=== PATIENT | male | born 1960 | race Caucasian/White ===

== ENCOUNTER 2020-07-13 18:40 | Inpatient (IN) | payer OTHER ==
[2020-07-13] MEDS ORDERED: SODIUM CHLORIDE 0.9% 500 ML 500 ML IV STA (19:20)
[2020-07-13] MEDS ORDERED: SODIUM CHLORIDE 0.9% 1,000 ML IV STA (19:20)
[2020-07-13] MEDS ORDERED: THIAMINE 100 MG/ML 2 ML VIAL IM STA (19:24)
[2020-07-13] MEDS ORDERED: LORazepam 2 MG/ML INJ IV PRN ×2 (19:24)
--- NOTE | 2020-07-13 19:24 | ED ---
General Adult HPI - General Chief complaint: Weakness Stated complaint: Sepsis,transfer from [facility] Time Seen by Provider: 07/13/20 18:40 Source: patient, RN/MD (Spoke with transferring physician), EMS, RN notes reviewed, old records reviewed (Review of reports from [facility]) Mode of arrival: EMS Limitations: no limitations - History of Present Illness Initial comments: Patient is a pleasant 74-year-old male presenting to the emergency Department as a transfer from [facility]. Patient was diagnosed with pneumonia. Patient did have blood cultures and lactic acid done. Patient received Rocephin and azithromycin. Patient did also receive magnesium and potassium. Patient is a daily drinker. Patient states he has been having cough and shortness of breath over the past week. Patient also has been fatigued. Patient complains of nausea and has vomited. - Related Data Allergies Allergy/AdvReac Type Severity Reaction Status Date / Time latex Allergy Rash/Hives Verified 07/13/20 18:48 Sulfa (Sulfonamide Allergy Unknown Verified 07/13/20 18:48 Antibiotics) Review of Systems ROS Statement: Those systems with pertinent positive or pertinent negative responses have been documented in the HPI. ROS Other: All systems not noted in ROS Statement are negative. Constitutional: Reports: fever Eyes: Denies: eye pain ENT: Denies: ear pain Respiratory: Reports: cough. Denies: dyspnea Cardiovascular: Denies: chest pain Endocrine: Reports: fatigue Gastrointestinal: Reports: nausea, vomiting. Denies: abdominal pain Genitourinary: Denies: dysuria Musculoskeletal: Denies: back pain Skin: Denies: rash Neurological: Denies: weakness Past Medical History Past Medical History: Cancer, COPD, GERD/Reflux, Hypertension History of Any Multi-Drug Resistant Organisms: None Reported Past Surgical History: Back Surgery, Orthopedic Surgery Additional Past Surgical History / Comment(s): THYROID, RIGHT HIP SX Past Psychological History: Anxiety Smoking Status: Current every day smoker Past Alcohol Use History: Daily, Heavy Past Drug Use History: None Reported General Exam Limitations: no limitations General appearance: alert, in no apparent distress Head exam: Present: normocephalic Eye exam: Present: normal appearance Neck exam: Present: normal inspection Respiratory exam: Present: rhonchi Cardiovascular Exam: Present: regular rate, normal rhythm, normal heart sounds Expanded Peripheral pulses: 2+: Radial (R), Radial (L) GI/Abdominal exam: Present: soft. Absent: tenderness Extremities exam: Present: normal inspection Neurological exam: Present: alert Psychiatric exam: Present: normal affect, normal mood Skin exam: Present: normal color, other (Refill less than 2 seconds bilateral fingers) Course Vital Signs 07/13/20 18:48 Temperature 98 F Pulse Rate 89 Respiratory 18 Rate Blood Pressure 88/69 O2 Sat by Pulse 100 Oximetry - Reevaluation(s) Reevaluation #1: 07/13/20 19:22 Patient reevaluated and updated. Patient did meet sepsis criteria prior to arrival. Patient did have blood culture and lactic acid and antibiotics given. Patient received at least 1 L of IV fluids per transfer record. Additional 1.5 L ordered. This will give over the 2.2 L required for ideal body weight of 73 kg. Critical Care Time Critical Care Time: Yes Total Critical Care Time: 31 Disposition Clinical Impression: Severe sepsis, Pneumonia Disposition: ADMITTED IP TO THIS HOSP Condition: Stable Is patient prescribed a controlled substance at d/c from ED?: No Referrals: Nando Deleon MD [Primary Care Provider] - 1-2 days Decision Time: 19:24
[2020-07-13] MEDS ORDERED: PIPERACILLIN-TAZOBACTAM 3.375 GM in SODIUM CHLORIDE 0.9% 100 ML IVPB STA (19:25)
[2020-07-13] MEDS ORDERED: PNEUMONIA PROTOCOL UTILIZED 1 EACH MISC PO PRN (19:25)
[2020-07-13] MEDS ORDERED: IPRATROPIUM-ALBUTEROL 3 ML NEB INHALATION PRN (19:25)
[2020-07-13 19:49] LABS: Albumin 3.2 g/dL (3.5-5.0); Magnesium 1.7 mg/dL (1.6-2.3); Potassium 3.1 mmol/L (3.5-5.1); Total Bilirubin 1.3 mg/dL (0.2-1.3); Total Protein 6.2 g/dL (6.3-8.2)
[2020-07-13] MEDS ORDERED: METOCLOPRAMIDE 5 MG/ML 2 ML VIAL IVP STA (19:49)
[2020-07-13] MEDS ORDERED: POTASSIUM CHLORIDE 20 MEQ in WATER FOR INJECTION 1 100ML.BAG IVPB STA (19:53)
--- NOTE | 2020-07-13 19:59 | ED ---
Medical Decision Making - Lab Data Result diagrams: 07/13/20 19:29 Lab Results 07/13/20 07/13/20 Range/Units 19:29 19:29 Sodium 138 (137-145) mmol/L Potassium 3.1 L (3.5-5.1) mmol/L Chloride 101 (98-107) mmol/L Carbon Dioxide 24 (22-30) mmol/L Anion Gap 13 mmol/L BUN 4 L (9-20) mg/dL Creatinine 1.09 (0.66-1.25) mg/dL Est GFR (CKD-EPI)AfAm 86 (>60 ml/min/1.73 sqM) Est GFR (CKD-EPI)NonAf 74 (>60 ml/min/1.73 sqM) Glucose 74 (74-99) mg/dL Plasma Lactic Acid Sanjeev 4.8 H* (0.7-2.0) mmol/L Calcium 7.0 L (8.4-10.2) mg/dL Magnesium 1.7 (1.6-2.3) mg/dL Total Bilirubin 1.3 (0.2-1.3) mg/dL AST 122 H (17-59) U/L ALT 29 (4-49) U/L Alkaline Phosphatase 148 H (38-126) U/L Total Protein 6.2 L (6.3-8.2) g/dL Albumin 3.2 L (3.5-5.0) g/dL Disposition Clinical Impression: Pneumonia, Septic shock Disposition: ADMITTED IP TO THIS [facility] Condition: Serious Is patient prescribed a controlled substance at d/c from ED?: No Referrals: Nando Deleon MD [Primary Care Provider] - 1-2 days Decision Time: 19:59 Procedures - Sepsis Sepsis Focused Exam #1 Time Sepsis Criteria Met: 18:40 Sepsis Focused Exam Date: 07/13/20 Sepsis Focused Exam Time: 19:58 Sepsis Focused Exam Complete: Yes Vital Signs & RN Notes Reviewed: Yes Capillary Refill: < 2 Seconds: Fingers, Toes Peripheral Pulses: Normal: Radial (R), Radial (L) Skin Color: Normal for Patient Respiratory Exam: normal lung sounds Cardiovascular Exam: regular rate, normal rhythm
[2020-07-13] MEDS: SODIUM CHLORIDE 0.9% 1,000 ML IV SCH (20:00)
[2020-07-13] MEDS: LORazepam 2 MG/ML INJ IV PRN (20:10)
[2020-07-13 20:49] LABS: Glucose,Whole Blood 82 mg/dL (75-99)
[2020-07-14] MEDS: SODIUM CHLORIDE 0.9% 1,000 ML IV SCH ×2 (02:00→10:44)
[2020-07-14] MEDS: PIPERACILLIN-TAZOBACTAM 3.375 GM in SODIUM CHLORIDE 0.9% 100 ML IVPB SCH ×3 (04:52→21:19)
[2020-07-14 05:53] LABS: Anisocytosis Slight; HCT 37.5 % (39.0-53.0); HGB 12.4 gm/dL (13.0-17.5); MCHC 33.2 g/dL (31.0-37.0); MCV 102.3 fL (80.0-100.0); Macrocytosis Moderate; Mean Platelet Volume 7.8; RBC 3.66 m/uL (4.30-5.90)
[2020-07-14 06:08] LABS: African American GFR (CKD) >90 (>60 ml/min/1.73 sqM); Anion Gap 10 mmol/L; Blood Urea Nitrogen 3 mg/dL (9-20); Calcium 6.7 mg/dL (8.4-10.2); Carbon Dioxide 23 mmol/L (22-30); Chloride 104 mmol/L (98-107); Glucose 66 mg/dL (74-99); Non-African American GFR(CKD) 81 (>60 ml/min/1.73 sqM); Potassium 2.9 mmol/L (3.5-5.1); Sodium 137 mmol/L (137-145)
[2020-07-14 06:27] LABS: Basophils # (M) 0.05 k/uL (0-0.2); Lymphocytes # (M) 1.05 k/uL (1.0-4.8); Monocytes # (M) 0.25 k/uL (0-1.0); Myelocytes # (M) 0.05 k/uL (0); Myelocytes % 1 %; Neutrophils # (M) 3.55 k/uL (1.3-7.7); Neutrophils % (M) 71 %; Nucleated Red Blood Cells 0 /100 WBC (0-0); Total Cells Counted 200
[2020-07-14 06:28] LABS: Platelet Count 50 k/uL (150-450)
--- NOTE | 2020-07-14 06:35 | XR ---
EXAMINATION TYPE: XR chest 1V DATE OF EXAM: 07/14/2020 CLINICAL HISTORY: Difficulty breathing progress study. TECHNIQUE: Single AP portable upright view of the chest is obtained. COMPARISON: Outside Chest x-ray from one day earlier FINDINGS: Bilateral mild chronic parenchymal change without suspicious focal airspace opacity, pleur al effusion, or pneumothorax seen bilaterally on current study. Cardiac silhouette size stable and wi thin normal limits. Multilevel spurring mid to lower thoracic spine is present. Overlying EKG leads r edemonstrated. IMPRESSION: Chronic changes without acute pulmonary process identified
[2020-07-14] MEDS ORDERED: Potassium Replacement Protocol 1 EACH MISC MISCELLANE PRN (06:41)
[2020-07-14] MEDS ORDERED: IOPAMIDOL CONTRAST (ORAL USE) VIAL PO PRN (08:13)
--- NOTE | 2020-07-14 08:24 | P.CNPUL ---
History of Present Illness Consult date: 07/14/20 History of present illness: This is a 79-year-old male patient was transferred to us from [facility] because of concern of infection and sepsis. The patient presented there were originally yesterday complaining of not feeling well for the past month. He was complaining of weakness and having generalized weakness. He denies having any chest back or neck pain. Apparently he was weak and he was unable to eat anything. His last oral intake was approximately a week ago. He did have however alcohol and there was drinking bourbon whiskey on a daily basis. He was afebrile in the emergency department with temperature of 98 6. His pulse was 68. BP was 100/66. Saturation was 99-100% on 3 L of oxygen by nasal cannula. He was given a chest x-ray that was interpreted as a limited left lower lobe pneumonia and the patient was given a combination of Zosyn and Zithromax. Urinalysis was negative for infection. His initial lactic acid level was at 5.6. His magnesium was low at 1.4, his potassium was low at 2.7 and the patient's creatinine was at 1.3 and the liver function tests were consistent with AST of 134 ALT of 33 alk phos of 188, bilirubin of 1.5 and a total protein of 7.5. The patient was brought into our hospital the patient was given a total of 1.5 L and the patient got another 1 L of normal saline at [facility]. His lactic acid level is gradually improving is currently down to 3.4. He is awake and alert. He is following commands. His white cell count remains low at 5.0. He has chronic thrombocytopenia probably related to alcohol drinking. 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 He has an antibiotic spacer and he was given also a PICC line for long-term antibiotic use. History as reported by him at somewhat limited and were not sure of the details of this. Surgeries that he had at a hospital in [facility] . According to him, he was taken a penicillin-based antibiotics and he completed antibiotic treatment back in May 2020. His right hip surgical wound site is dry clean and intact at this point in time. He is able to bear some weight, yet he has still difficulty with mobility and gait. 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 He used to work in [employer], [employer] and he had issues initially with rotator cuff and he was unable to continue his practice as a general surgeon. 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 I believe his license and his assets have been all frozen and taken away from him and the patient is currently living alone and the [facility]. His story needs to be confirmed independently Review of Systems Constitutional: Reports fatigue, Reports weakness, Reports weight loss Eyes: denies as per HPI, denies blurred vision, denies bulging eye, denies decreased vision, denies diplopia, denies discharge, denies dry eye, denies irritation, denies itching, denies pain, denies photophobia, denies loss of peripheral vision, denies loss of vision, denies tunnel vision/blind spots Ears: deny: decreased hearing, ear discharge, earache, tinnitus Ears, nose, mouth and throat: Reports as per HPI Breasts: absent: as per HPI, gynecomastia Cardiovascular: Reports decreased exercise tolerance, Reports dyspnea on exertion Respiratory: Reports dyspnea Gastrointestinal: Reports as per HPI Genitourinary: Reports as per HPI, Reports urinary frequency, Reports urinary hesitancy, Reports urinary retention Musculoskeletal: Reports gait dysfunction, Reports limitation of motion, Reports muscle weakness Musculoskeletal: absent: ankle pain, ankle stiffness, ankle swelling Integumentary: Reports as per HPI Neurological: Reports as per HPI Psychiatric: Reports as per HPI Endocrine: Reports as per HPI Hematologic/Lymphatic: Reports as per HPI Allergic/Immunologic: Reports as per HPI Past Medical History Past Medical History: Cancer, COPD, GERD/Reflux, Hypertension Additional Past Medical History / Comment(s): 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, thyroid CA (2009) post thyroidectomy, COPD, genralised anxiety, BPH, HTN, hyperlipidemia, alcoholism ( drinks bourbon daily), 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 and the hardware was removed and the patient was given a temparory joint with PICC line for antibiotics, smoker History of Any Multi-Drug Resistant Organisms: None Reported Past Surgical History: Back Surgery, Orthopedic Surgery Additional Past Surgical History / Comment(s): Thyroidectomy , right orchiectomy, RIGHT HIP replacement in february 2019 Past Psychological History: Anxiety Smoking Status: Current every day smoker Past Alcohol Use History: Daily, Heavy Past Drug Use History: None Reported - Past Family History Mother Family Medical History: Myocardial Infarction (CT) Additional Family Medical History / Comment(s): depression Medications and Allergies Home Medications Medication Instructions Recorded Confirmed Type Levothyroxine Sodium 125 mcg PO DAILY 07/13/20 07/13/20 History Pantoprazole Sodium [Protonix] 20 mg PO DAILY 07/13/20 07/13/20 History Sertraline HCl [Zoloft] 100 mg PO DAILY 07/13/20 07/13/20 History Acetaminophen Tab [Tylenol] 650 mg PO TID PRN 07/14/20 07/14/20 History Ibuprofen 800 mg PO Q8H PRN 07/14/20 07/14/20 History Propranolol LA [Inderal LA] 80 mg PO DAILY 07/14/20 07/14/20 History Sertraline HCl [Zoloft] 100 mg PO DAILY 07/14/20 07/14/20 History Tamsulosin [Flomax] 0.5 mg PO DAILY 07/14/20 07/14/20 History Allergies Allergy/AdvReac Type Severity Reaction Status Date / Time latex Allergy Rash/Hives Verified 07/13/20 18:48 Sulfa (Sulfonamide Allergy Unknown Verified 07/13/20 18:48 Antibiotics) Physical Exam Vitals: Vital Signs Temp Pulse Resp BP BP Pulse Ox 07/14/20 04:00 99.3 F 70 4 L 113/77 94 L 07/14/20 02:00 109 H 17 131/80 95 07/14/20 00:00 99.1 F 69 9 L 126/86 99 07/13/20 22:05 71 8 L 123/60 98 07/13/20 22:00 67 11 L 116/77 98 07/13/20 21:00 99.0 F 67 18 141/101 100 07/13/20 20:21 99.0 F 66 11 L 114/90 123/60 99 07/13/20 20:00 86 121/81 07/13/20 19:25 61 18 121/81 100 07/13/20 18:48 98 F 89 18 88/69 100 Intake and Output 07/13/20 07/14/20 07/14/20 22:59 06:59 14:59 Intake Total 260 1170 130 Output Total 325 1150 125 Balance -65 20 5 Intake: IV 260 1170 130 Sodium Chloride 0.9% 1, 260 1170 130 000 ml @ 130 mls/hr IV . [id number] [facility] Rx#:[id number] Output: Urine 325 1150 125 Other: Voiding Method Indwelling Catheter # Bowel Movements 1 1 Weight 90.718 kg 92.3 kg The patient appeared well nourished and normally developed. Vital signs as documented. Head exam is unremarkable. No scleral icterus or corneal arcus noted. Neck is without jugular venous distension, thyromegaly, or carotid bruits. Carotid upstrokes are brisk bilaterally. Lungs are clear to auscultation and percussion. Cardiac exam reveals the PMI to be normally sized and situated. Rhythm is regular. First and second heart sounds normal. No murmurs, rubs or gallops. Abdominal exam reveals normal bowel sounds, no masses, no organomegaly and no aortic enlargement. Extremities are nonedematous and both femoral and pedal pulses are normal. The patient has a limited range of motion in his right hip. Nevertheless, there is no swelling in the surgical wound site over the right hip area as dry clean and intact and there is no drainage or erythema or pain during passive movement. Examination of the skin revealed no evidence of significant rashes, suspicious appearing nevi or other concerning lesions .Neurologically, the patient is awake and alert and the patient does not have any focal neurological deficit. Cranial nerves are essentially intact. Results - Laboratory Findings CBC and BMP: 07/14/20 05:43 07/14/20 05:43 Abnormal lab findings: Abnormal Labs 07/13/20 07/13/20 07/13/20 19:29 19:29 22:26 RBC Hgb Hct MCV RDW Plt Count Myelocytes # (Manual) Potassium 3.1 L BUN 4 L Glucose Plasma Lactic Acid Sanjeev 4.8 H* 4.7 H* Calcium 7.0 L AST 122 H Alkaline Phosphatase 148 H Total Protein 6.2 L Albumin 3.2 L 07/14/20 07/14/20 07/14/20 02:42 05:35 05:43 RBC 3.66 L Hgb 12.4 L Hct 37.5 L MCV 102.3 H RDW 19.0 H Plt Count 50 L Myelocytes # (Manual) 0.05 H Potassium BUN Glucose Plasma Lactic Acid Sanjeev 4.3 H* 3.4 H* Calcium AST Alkaline Phosphatase Total Protein Albumin 07/14/20 05:43 RBC Hgb Hct MCV RDW Plt Count Myelocytes # (Manual) Potassium 2.9 L BUN 3 L Glucose 66 L Plasma Lactic Acid Sanjeev Calcium 6.7 L AST Alkaline Phosphatase Total Protein Albumin - Diagnostic Findings Chest x-ray: image reviewed Assessment and Plan Plan: 1 generalized weakness along with lactic acidosis, admitted to the hospital for possible sepsis. No clear source of infection. This could be all related to diminished oral intake and ongoing alcohol drinking. Rule out any abdominal pathology contributing to his poor oral intake. The patient seems to be drinking heavily 2 acute lactic acidosis, improving 3 history of a infected right hip prosthesis post right hip arthroplasty that was performed for an AVN of the right hip. The patient had the hardware removed and the patient was given antibiotic spacer and long-term antibiotics with a PICC line if he completed a few months back 4 significant mobility and gait secondary to above 5 history of testicular cancer with previous leg orchiectomy 6 history of thyroid cancer post-thyroidectomy currently on thyroid hormone replacement 7 hypertension 8 hyperlipidemia 9 BPH 10 impaired performance and functional status secondary to above-mentioned comorbidities. Plan Continue IV fluids at the rate of 130s is an hour of normal saline monitor the lactic acid level I clearly do not see any signs of pneumonia. I reviewed the chest x-ray from this hospital and that is no evidence of any pneumonia clinically the patient does not have any respiratory difficulties or respiratory complaints. I would suggest stopping the Zithromax for now. Continue empiric antibiotic coverage with IV Zosyn Check pro calcitonin level Check amylase lipase Check a CAT scan of the abdomen with oral contrast No hemodynamic instability. X-ray of the right hip Orthopedic consultation regarding the previous history of right hip prosthetic infection Resume all medications Can be transferred out of the intensive care unit
[2020-07-14 08:38] LABS: Amylase <30 U/L (30-110)
--- NOTE | 2020-07-14 09:16 | XR ---
EXAMINATION TYPE: XR Hip Limited RT DATE OF EXAM: 07/14/2020 CLINICAL HISTORY: Right hip pain and infection. TECHNIQUE: Single AP portable view of right hip is obtained . COMPARISON: None. FINDINGS: Metallic hardware from total right hip arthroplasty is seen and appears satisfactory in ali gnment and position. Femoral head component shows circular density presumed antibiotic spacer. Some symmetric surrounding lucency surrounding the femoral head component with adjacent sclerosis and mode rate spurring is noted. Some adjacent heterotopic ossification is present. No suspicious lucency or b shayla destruction. IMPRESSION: As above
[2020-07-14 09:32] LABS: Glucose,Whole Blood 110 mg/dL (75-99)
[2020-07-14] MEDS: POTASSIUM CHLORIDE ER 20 MEQ TAB.ER PO SCH ×5 (09:33→23:50)
[2020-07-14] MEDS: MULTIVITAMINS, THERA 1 EACH TAB PO SCH (09:34)
[2020-07-14] MEDS: NICOTINE 14MG/24HR PATCH TRANSDERM SCH (09:34)
[2020-07-14] MEDS: THIAMINE 100 MG TAB PO SCH ×2 (09:34→18:17)
[2020-07-14] MEDS: TAMSULOSIN 0.4 MG CAP.ER.24H PO SCH (09:34)
[2020-07-14] MEDS: PROPRANOLOL LA 80 MG CAP.SA.24H PO SCH (09:36)
[2020-07-14] MEDS: SERTRALINE 100 MG TAB PO SCH (09:36)
[2020-07-14] MEDS: LEVOTHYROXINE 125 MCG TAB PO SCH (09:36)
[2020-07-14] MEDS: PANTOPRAZOLE 40 MG TABLET PO SCH (09:38)
[2020-07-14] MEDS: LORazepam 2 MG/ML INJ IV PRN ×2 (10:01→12:48)
[2020-07-14 10:13] LABS: T4, Free (Free Thyroxine) <0.07 ng/dL (0.78-2.19)
--- NOTE | 2020-07-14 12:02 | CT ---
EXAMINATION TYPE: CT abdomen pelvis wo con DATE OF EXAM: 07/14/2020 HISTORY: Sepsis, lactic acidosis, increasing weakness CT DLP: 833.6 mGycm. Automated Exposure Control for Dose Reduction was Utilized. TECHNIQUE: CT scan of the abdomen and pelvis is performed with oral but without IV contrast. COMPARISON: NONE FINDINGS: Within the limitations of a non-contrast study, the following observations are made. LUNG BASES: Trace bilateral pleural effusions. Patchy areas of atelectasis and/or limited consolidati on in the posterior lung bases right greater than left. Correlate clinically. LIVER/GB: Liver markedly heterogeneously hypodense consistent with diffuse fatty infiltration. Liver size upper limits of normal. PANCREAS: No significant abnormality is seen. SPLEEN: No significant abnormality is seen. ADRENALS: No significant abnormality is seen. KIDNEYS: No renal stones or hydronephrosis seen bilaterally. BOWEL: Oral contrast reaches level of the hepatic flexure making evaluation of distal bowel suboptima l. No suspicious small or large bowel dilatation. Mildly prominent contrast filled stomach. Few scatt ered air-fluid levels. Focal with mild to moderate wall thickening near level of hepatic flexure is s uspected versus fluid-filled colonic prominence. Mild wall thickening near splenic flexure. Occasiona l diverticula distal left colon with more prominent diverticulosis in the sigmoid colon. Mild wall th ickening at this level. GENITAL ORGANS: [place] within normal limits in size. Adjacent scattered pelvic phleboliths. LYMPH NODES: No greater than 1cm abdominal or pelvic lymph nodes are appreciated. OSSEOUS STRUCTURES: Metallic hardware from total right hip arthroplasty causes streak artifact limiti ng evaluation of pelvic structures. Moderate multilevel spurring in the thoracolumbar spine. Moderate disc space narrowing and vacuum disc phenomenon with slight lateral spurring L4-L5 level. Mild heigh t loss with endplate sclerosis superior L1 level OTHER: Small fat-containing left inguinal hernia axial image 80. Moderate calcified plaque abdominal aorta extends into branch vessels. IMPRESSION: Cannot mild multifocal areas of uncomplicated acute colitis. Correlate clinically. Marked fatty infiltration of liver noted. Right greater than left patchy bibasilar atelectasis and/or Limit ed acute consolidation.
[2020-07-14] MEDS ORDERED: SODIUM CHLORIDE 0.9% 1,000 ML IV ONE (12:47)
[2020-07-14] MEDS ORDERED: ONDANSETRON 4 MG/2 ML VIAL IVP PRN (13:17)
--- NOTE | 2020-07-14 15:07 | P.HPIM ---
History of Present Illness H&P Date: 07/14/20 Chief Complaint: Cough shortness History of presenting complaint: This is a 59-year-old patient of . Patient drinks at least a couple Pope drinks every day. Smoker. Has not been taking his medications for last 3 weeks peeling weak and tired. Has got short of breath. Cough. Some sputum production. Presented to [facility] provided he was transferred down here. With the diagnosis of pneumonia. Started on IV Zosyn and Zithromax. Patient been having loose stools somewhat watery for last couple of days. No abdominal pain. Somewhat shaky and jittery. Decreased appetite. Patient doesn't eat healthy at home. Patient also had high lactic acid. Has chronically depleted platelets from chronic alcohol intake. 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 Tired rundown. Not sure about fever and chills. Review of systems: GEN.: Tired rundown EYES: None HEENT: None NECK: None RESPIRATORY: Cough shortness of breath CARDIOVASCULAR: None GASTROINTESTINAL: Watery stools GENITOURINARY: None MUSCULOSKELETAL: Joint pain LYMPHATICS: None HEMATOLOGICAL: None PSYCHIATRY: Anxious NEUROLOGICAL: None Past medical history to include: COPD, GERD, hypertension, excellent cancer 1979 with right orchiectomy and radiation, thyroid cancer 2009 with thyroidectomy, COPD, anxiety, BPH, hypertension, hyperlipidemia, alcoholism, avascular necrosis of the right hip with infection prosthetic and removed, Social history: Patient is a smoker and drinks at least coupleBoubon drinks daily. Physical examination: VITAL SIGNS: 98, 89, 18, 121/81, 100% on 2 L GENERAL: BMI 30, laying in bed disheveled, tired. EYES: Pupils equal. Conjunctiva normal. HEENT: External appearance of nose and ears normal, oral cavity grossly normal. NECK: JVD not raised; masses not palpable. HEART: First and second heart sounds are normal; no edema. LUNGS: Respiratory rate increased, decreased breath sound growing expiration some wheezing. ABDOMEN: Soft, nontender, liver spleen not palpable, no masses palpable. PSYCH: Alert and oriented x3; anxiousl. NEUROLOGICAL: Cranial nerves grossly intact; no facial asymmetry, power and sensation grossly intact. Tremors LYMPHATICS: No lymph nodes palpable in the axilla and neck INVESTIGATIONS, reviewed in the clinical context: Potassium 3.1 creatinine 1.09 bun is 4 lactic acid 4.8 AST 122 ALT 29 albumin 3.2 Chest x-ray film personally reviewed by me-possible infiltrate Assessment: -Pneumonia suspected gram-negative orgasm in an immunosuppressed patient from chronic alcoholism -Acute COPD exacerbation in a current smoker -Chronic nicotine dependence patient cigarette smoker -Alcohol use disorder -Early alcohol withdrawal syndrome -GERD -Essential hypertension -Hyperlipidemia -BPH -Anxiety not otherwise determined -Lactic acidosis both type I and type II including that from dehydration -Macrocytic anemia and alcoholic combination of possible B12 deficiency and alcohol liver disease -Hypokalemia from diarrhea -Hypoglycemia from decreased oral intake -Acute diarrhea suspect viral and/or infectious Plan: Patient is on IV Zosyn, bronchodilators,Inhaled steroids. Home medications resumed. Patient is on the CIWA scale will also had scheduled Valium for the alcohol withdrawal syndrome. Fall precautions. Pulmonary consulted. We'll also add Timentin. Check patient's B12 folate level. Stool be sent off for Giardia. It may be noted that patient has not been taking his medications for a few days. That'll explain patient's elevated TSH and a low free T4. Past Medical History Past Medical History: Cancer, COPD, GERD/Reflux, Hypertension Additional Past Medical History / Comment(s): 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, thyroid CA (2009) post thyroidectomy, COPD, genralised anxiety, BPH, HTN, hyperlipidemia, alcoholism ( drinks bourbon daily), 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 and the hardware was removed and the patient was given a temparory joint with PICC line for antibiotics, smoker History of Any Multi-Drug Resistant Organisms: None Reported Past Surgical History: Back Surgery, Orthopedic Surgery Additional Past Surgical History / Comment(s): Thyroidectomy , right orchiectomy, RIGHT HIP replacement in february 2019 Past Psychological History: Anxiety Smoking Status: Current every day smoker Past Alcohol Use History: Daily, Heavy Past Drug Use History: None Reported - Past Family History Mother Family Medical History: Myocardial Infarction ([place]) Additional Family Medical History / Comment(s): depression Medications and Allergies Home Medications Medication Instructions Recorded Confirmed Type Levothyroxine Sodium 125 mcg PO DAILY 07/13/20 07/13/20 History Pantoprazole Sodium [Protonix] 20 mg PO DAILY 07/13/20 07/13/20 History Sertraline HCl [Zoloft] 100 mg PO DAILY 07/13/20 07/13/20 History Acetaminophen Tab [Tylenol] 650 mg PO TID PRN 07/14/20 07/14/20 History Ibuprofen 800 mg PO Q8H PRN 07/14/20 07/14/20 History Propranolol LA [Inderal LA] 80 mg PO DAILY 07/14/20 07/14/20 History Sertraline HCl [Zoloft] 100 mg PO DAILY 07/14/20 07/14/20 History Tamsulosin [Flomax] 0.5 mg PO DAILY 07/14/20 07/14/20 History Allergies Allergy/AdvReac Type Severity Reaction Status Date / Time latex Allergy Rash/Hives Verified 07/13/20 18:48 Sulfa (Sulfonamide Allergy Unknown Verified 07/13/20 18:48 Antibiotics) Physical Exam Vitals: Vital Signs Temp Pulse Resp BP BP Pulse Ox 07/14/20 04:00 99.3 F 70 4 L 113/77 94 L 07/14/20 02:00 109 H 17 131/80 95 07/14/20 00:00 99.1 F 69 9 L 126/86 99 07/13/20 22:05 71 8 L 123/60 98 07/13/20 22:00 67 11 L 116/77 98 07/13/20 21:00 99.0 F 67 18 141/101 100 07/13/20 20:21 99.0 F 66 11 L 114/90 123/60 99 07/13/20 20:00 86 121/81 07/13/20 19:25 61 18 121/81 100 07/13/20 18:48 98 F 89 18 88/69 100 Intake and Output 07/13/20 07/14/20 07/14/20 22:59 06:59 14:59 Intake Total 260 1170 130 Output Total 325 1150 125 Balance -65 20 5 Intake: IV 260 1170 130 Sodium Chloride 0.9% 1, 260 1170 130 000 ml @ 130 mls/hr IV . [id number] [facility] Rx#:[id number] Output: Urine 325 1150 125 Other: Voiding Method Indwelling Catheter # Bowel Movements 1 1 Weight 90.718 kg 92.3 kg Results CBC & Chem 7: 07/14/20 05:43 07/14/20 05:43 Labs: Abnormal Lab Results - Last 24 Hours (Table) 07/13/20 07/13/20 07/13/20 Range/Units 19:29 19:29 22:26 RBC (4.30-5.90) m/uL Hgb (13.0-17.5) gm/dL Hct (39.0-53.0) % MCV (80.0-100.0) fL RDW (11.5-15.5) % Plt Count (150-450) k/uL Myelocytes # (Manual) (0) k/uL Potassium 3.1 L (3.5-5.1) mmol/L BUN 4 L (9-20) mg/dL Glucose (74-99) mg/dL POC Glucose (mg/dL) (75-99) mg/dL Plasma Lactic Acid Sanjeev 4.8 H* 4.7 H* (0.7-2.0) mmol/L Calcium 7.0 L (8.4-10.2) mg/dL AST 122 H (17-59) U/L Alkaline Phosphatase 148 H (38-126) U/L Total Protein 6.2 L (6.3-8.2) g/dL Albumin 3.2 L (3.5-5.0) g/dL Amylase (30-110) U/L TSH (0.465-4.680) mIU/L 07/14/20 07/14/20 07/14/20 Range/Units 02:42 05:35 05:43 RBC 3.66 L (4.30-5.90) m/uL Hgb 12.4 L (13.0-17.5) gm/dL Hct 37.5 L (39.0-53.0) % MCV 102.3 H (80.0-100.0) fL RDW 19.0 H (11.5-15.5) % Plt Count 50 L (150-450) k/uL Myelocytes # (Manual) 0.05 H (0) k/uL Potassium (3.5-5.1) mmol/L BUN (9-20) mg/dL Glucose (74-99) mg/dL POC Glucose (mg/dL) (75-99) mg/dL Plasma Lactic Acid Sanjeev 4.3 H* 3.4 H* (0.7-2.0) mmol/L Calcium (8.4-10.2) mg/dL AST (17-59) U/L Alkaline Phosphatase (38-126) U/L Total Protein (6.3-8.2) g/dL Albumin (3.5-5.0) g/dL Amylase (30-110) U/L TSH (0.465-4.680) mIU/L 07/14/20 07/14/20 07/14/20 Range/Units 05:43 05:43 08:35 RBC (4.30-5.90) m/uL Hgb (13.0-17.5) gm/dL Hct (39.0-53.0) % MCV (80.0-100.0) fL RDW (11.5-15.5) % Plt Count (150-450) k/uL Myelocytes # (Manual) (0) k/uL Potassium 2.9 L (3.5-5.1) mmol/L BUN 3 L (9-20) mg/dL Glucose 66 L (74-99) mg/dL POC Glucose (mg/dL) (75-99) mg/dL Plasma Lactic Acid Sanjeev 5.5 H* (0.7-2.0) mmol/L Calcium 6.7 L (8.4-10.2) mg/dL AST (17-59) U/L Alkaline Phosphatase (38-126) U/L Total Protein (6.3-8.2) g/dL Albumin (3.5-5.0) g/dL Amylase <30 L (30-110) U/L TSH 99.500 H (0.465-4.680) mIU/L 07/14/20 Range/Units 09:30 RBC (4.30-5.90) m/uL Hgb (13.0-17.5) gm/dL Hct (39.0-53.0) % MCV (80.0-100.0) fL RDW (11.5-15.5) % Plt Count (150-450) k/uL Myelocytes # (Manual) (0) k/uL Potassium (3.5-5.1) mmol/L BUN (9-20) mg/dL Glucose (74-99) mg/dL POC Glucose (mg/dL) 110 H (75-99) mg/dL Plasma Lactic Acid Sanjeev (0.7-2.0) mmol/L Calcium (8.4-10.2) mg/dL AST (17-59) U/L Alkaline Phosphatase (38-126) U/L Total Protein (6.3-8.2) g/dL Albumin (3.5-5.0) g/dL Amylase (30-110) U/L TSH (0.465-4.680) mIU/L Thrombosis Risk Factor Assmnt - Choose All That Apply Each Factor Represents 1 point: Abnormal pulmonary function (COPD), Age 41-60 years, Sepsis (< 1month), Serious lung disease incl. pneumonia (< 1month) Thrombosis Risk Factor Assessment Total Risk Factor Score: 4 Thrombosis Risk Factor Assessment Level: Moderate Risk
[2020-07-14] MEDS: diazePAM 5 MG TAB PO SCH ×2 (15:25→21:20)
[2020-07-14] MEDS: DEXTROSE 5%-0.9% NACL 1,000 ML IV SCH ×2 (15:26→23:50)
--- NOTE | 2020-07-14 17:25 | P.CNOR ---
History of Present Illness - HPI Consult date: 07/14/20 Consult reason: joint pain (Right hip pain s/p antibiotic spacer after total hip infection) History of present illness: This is a 59-year-old male patient was transferred to [facility] from [facility] due to concern of infection and sepsis. The patient was seen at the bedside this afternoon while in ICU and he was just given Valium. He is easy to arouse but falls asleep quickly during exam. I'm unable to obtain a full surgical history at this time. He has a history of a right total hip arth roplasty last year in [facility]. The patient was found to have total hip infection and an antibiotic spacer was placed. A PICC line was inserted and he underwent IV antibiotic therapy until April or May 2020. Again, the patient is unable to give me a complete history at this time due to his lethargy from recent medications. He does states pain in the right hip currently, a little more than normal for him. He is currently laying comfortably in bed with his right leg crossed over his left. The patient is able to bear weight on the leg according to the patient. He denies recent fever, chills, or rigors. The patient has had numerous loose stools today and C. diff was negative. His white count is normal. Sed rate and CRP have not been obtained. Lactic acid levels are trending up again. Orthopedics was consulted to rule out a septic hip joint for a possible source of infection on this gentleman. According to Dr. Cash, this history was obtained earlier in the day when the patient was less lethargic/sleeping: The patient presented there were originally yesterday complaining of not feeling well for the past month. He was complaining of weakness and having generalized weakness. He denies having any chest back or neck pain. Apparently he was weak and he was unable to eat anything. His last oral intake was approximately a week ago. He did have however alcohol and there was drinking bourbon whiskey on a daily basis. He was afebrile in the emergency department with temperature of 98 6. His pulse was 68. BP was 100/66. Saturation was 99-100% on 3 L of oxygen by nasal cannula. He was given a chest x-ray that was interpreted as a limited left lower lobe pneumonia and the patient was given a combination of Zosyn and Zithromax. Urinalysis was negative for infection. His initial lactic acid level was at 5.6. His magnesium was low at 1.4, his potassium was low at 2.7 and the patient's creatinine was at 1.3 and the liver function tests were consistent with AST of 134 ALT of 33 alk phos of 188, bilirubin of 1.5 and a total protein of 7.5. The patient was brought into our hospital the patient was given a total of 1.5 L and the patient got another 1 L of normal saline at [facility]. His lactic acid level is gradually improving is currently do wn to 3.4. He is awake and alert. He is following commands. His white cell count remains low at 5.0. He has chronic thrombocytopenia probably related to alcohol drinking. 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 He has an antibiotic spacer and he was given also a PICC line for long-term antibiotic use. History as reported by him at somewhat limited and were not sure of the details of this. Surgeries that he had at a hospital in [facility] . According to him, he was taken a penicillin-based antibiotics and he completed antibiotic treatment back in May 2020. His right hip surgical wound site is dry clean and intact at this point in time. He is able to bear some weight, yet he has still difficulty with mobility and gait. Review of Systems Constitutional: Reports fatigue, Denies chills, Denies fever Cardiovascular: Denies chest pain, Denies shortness of breath Respiratory: Denies cough Gastrointestinal: Reports diarrhea Musculoskeletal: right: hip pain, hip stiffness Past Medical History Past Medical History: Cancer, COPD, GERD/Reflux, Hypertension Additional Past Medical History / Comment(s): 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, thyroid CA (2009) post thyroidectomy, COPD, genralised anxiety, BPH, HTN, hyperlipidemia, alcoholism ( drinks bourbon daily), AVN of th e right hip post infection of a prosthetic joint and the hardware was removed and the patient was given a temparory joint with PICC line for antibiotics, smoker History of Any Multi-Drug Resistant Organisms: None Reported Past Surgical History: Back Surgery, Orthopedic Surgery Additional Past Surgical History / Comment(s): Thyroidectomy , right orchiectomy, RIGHT HIP replacement in february 2019 Past Psychological History: Anxiety Smoking Status: Current every day smoker Past Alcohol Use History: Daily, Heavy Past Drug Use History: None Reported - Past Family History Mother Family Medical History: Myocardial Infarction ([place]) Additional Family Medical History / Comment(s): depression Medications and Allergies Home Medications Medication Instructions Recorded Confirmed Type Levothyroxine Sodium 125 mcg PO DAILY 07/13/20 07/13/20 History Pantoprazole Sodium [Protonix] 20 mg PO DAILY 07/13/20 07/13/20 History Sertraline HCl [Zoloft] 100 mg PO DAILY 07/13/20 07/13/20 History Acetaminophen Tab [Tylenol] 650 mg PO TID PRN 07/14/20 07/14/20 History Ibuprofen 800 mg PO Q8H PRN 07/14/20 07/14/20 History Propranolol LA [Inderal LA] 80 mg PO DAILY 07/14/20 07/14/20 History Sertraline HCl [Zoloft] 100 mg PO DAILY 07/14/20 07/14/20 History Tamsulosin [Flomax] 0.5 mg PO DAILY 07/14/20 07/14/20 History Allergies Allergy/AdvReac Type Severity Reaction Status Date / Time latex Allergy Rash/Hives Verified 07/13/20 18:48 Sulfa (Sulfonamide Allergy Unknown Verified 07/13/20 18:48 Antibiotics) Physical Examination The patient is a 59 y/o male in no acute distress. He is lethargic during the exam but easily to arouse then fall back to sleep. Exam of the right lower extremity reveals a healed incision to the lateral aspect of the hip and anterior aspect of the hip. There is some keloiding present to the incisions. No erythema or swelling to the hip area. No fluctuance or fluid collection noted. There is full passive and active ROM of the hip joint included internal and external rotation and flexion without significant pain or grimacing. He is able to lift his leg off the bed with some weakness. Good foot and ankle motion. Calf is soft and nontender. Neurological and circulatory status is intact. Results - Labs Labs: Abnormal Lab Results - Last 24 Hours (Table) 07/13/20 07/13/20 07/13/20 Range/Units 19:29 19:29 22:26 RBC (4.30-5.90) m/uL Hgb (13.0-17.5) gm/dL Hct (39.0-53.0) % MCV (80.0-100.0) fL RDW (11.5-15.5) % Plt Count (150-450) k/uL Myelocytes # (Manual) (0) k/uL Potassium 3.1 L (3.5-5.1) mmol/L BUN 4 L (9-20) mg/dL Glucose (74-99) mg/dL POC Glucose (mg/dL) (75-99) mg/dL Plasma Lactic Acid Sanjeev 4.8 H* 4.7 H* (0.7-2.0) mmol/L Calcium 7.0 L (8.4-10.2) mg/dL AST 122 H (17-59) U/L Alkaline Phosphatase 148 H (38-126) U/L Total Protein 6.2 L (6.3-8.2) g/dL Albumin 3.2 L (3.5-5.0) g/dL Amylase (30-110) U/L TSH (0.465-4.680) mIU/L Free T4 (0.78-2.19) ng/dL 07/14/20 07/14/20 07/14/20 Range/Units 02:42 05:35 05:43 RBC 3.66 L (4.30-5.90) m/uL Hgb 12.4 L (13.0-17.5) gm/dL Hct 37.5 L (39.0-53.0) % MCV 102.3 H (80.0-100.0) fL RDW 19.0 H (11.5-15.5) % Plt Count 50 L (150-450) k/uL Myelocytes # (Manual) 0.05 H (0) k/uL Potassium (3.5-5.1) mmol/L BUN (9-20) mg/dL Glucose (74-99) mg/dL POC Glucose (mg/dL) (75-99) mg/dL Plasma Lactic Acid Sanjeev 4.3 H* 3.4 H* (0.7-2.0) mmol/L Calcium (8.4-10.2) mg/dL AST (17-59) U/L Alkaline Phosphatase (38-126) U/L Total Protein (6.3-8.2) g/dL Albumin (3.5-5.0) g/dL Amylase (30-110) U/L TSH (0.465-4.680) mIU/L Free T4 (0.78-2.19) ng/dL 07/14/20 07/14/20 07/14/20 Range/Units 05:43 05:43 08:35 RBC (4.30-5.90) m/uL Hgb (13.0-17.5) gm/dL Hct (39.0-53.0) % MCV (80.0-100.0) fL RDW (11.5-15.5) % Plt Count (150-450) k/uL Myelocytes # (Manual) (0) k/uL Potassium 2.9 L (3.5-5.1) mmol/L BUN 3 L (9-20) mg/dL Glucose 66 L (74-99) mg/dL POC Glucose (mg/dL) (75-99) mg/dL Plasma Lactic Acid Sanjeev 5.5 H* (0.7-2.0) mmol/L Calcium 6.7 L (8.4-10.2) mg/dL AST (17-59) U/L Alkaline Phosphatase (38-126) U/L Total Protein (6.3-8.2) g/dL Albumin (3.5-5.0) g/dL Amylase <30 L (30-110) U/L TSH 99.500 H (0.465-4.680) mIU/L Free T4 <0.07 L (0.78-2.19) ng/dL 07/14/20 07/14/20 Range/Units 09:30 12:07 RBC (4.30-5.90) m/uL Hgb (13.0-17.5) gm/dL Hct (39.0-53.0) % MCV (80.0-100.0) fL RDW (11.5-15.5) % Plt Count (150-450) k/uL Myelocytes # (Manual) (0) k/uL Potassium (3.5-5.1) mmol/L BUN (9-20) mg/dL Glucose (74-99) mg/dL POC Glucose (mg/dL) 110 H (75-99) mg/dL Plasma Lactic Acid Sanjeev 6.8 H* (0.7-2.0) mmol/L Calcium (8.4-10.2) mg/dL AST (17-59) U/L Alkaline Phosphatase (38-126) U/L Total Protein (6.3-8.2) g/dL Albumin (3.5-5.0) g/dL Amylase (30-110) U/L TSH (0.465-4.680) mIU/L Free T4 (0.78-2.19) ng/dL H & H 07/14/20 Range/Units 05:43 Hgb 12.4 L (13.0-17.5) gm/dL Hct 37.5 L (39.0-53.0) % Result Diagrams: 07/14/20 05:43 07/14/20 05:43 - Diagnostic results Hip x-ray: image reviewed (X-rays of the right hip reveal good position of components. No acute fractures or signs of loosening noted.) Assessment and Plan (1) Right hip pain Current Visit: Yes Status: Acute Code(s): M25.551 - PAIN IN RIGHT HIP SNOMED Code(s): 56911893 (2) Status post total hip replacement, right Current Visit: Yes Status: Acute Code(s): Z96.641 - PRESENCE OF RIGHT ARTIFICIAL HIP JOINT SNOMED Code(s): 440943954148 (3) Pneumonia Current Visit: Yes Status: Acute Code(s): J18.9 - PNEUMONIA, UNSPECIFIED ORGANISM SNOMED Code(s): 548839392 (4) Septic shock Current Visit: Yes Status: Acute Code(s): A41.9 - SEPSIS, UNSPECIFIED ORGANISM; R65.21 - SEVERE SEPSIS WITH SEPTIC SHOCK SNOMED Code(s): 70659454 Plan: The clinical and x-ray findings were discussed with the patient and nursing staff. We clinically doubt a septic hip joint as the source of his infection at this time due to the patient ability to tolerate full range of motion of the hip at this time. Continue conservative care to the right hip and he may benefit from some physical therapy when he feeling better for mobility and gait training. The patient was instructed to call his orthopedic surgeon when he leaves the hospital for continued follow up care for the right hip. The patient is orthopedically stable and we will sign off at this time.
[2020-07-14] MEDS ORDERED: AZITHROMYCIN 500 MG in SODIUM CHLORIDE 0.9% 250 ML IVPB SCH (18:00)
[2020-07-14 18:29] LABS: C Reactive Protein 15.8 mg/L (<10.0); Potassium 3.3 mmol/L (3.5-5.1)
[2020-07-14 18:45] LABS: Glucose,Whole Blood 125 mg/dL (75-99)
[2020-07-14 20:29] LABS: Glucose,Whole Blood 120 mg/dL (75-99)
[2020-07-14 23:04] LABS: Glucose,Whole Blood 118 mg/dL (75-99)
[2020-07-15 00:05] LABS: Glucose,Whole Blood 122 mg/dL (75-99)
[2020-07-15] MEDS: LORazepam 2 MG/ML INJ IV PRN ×4 (03:16→13:43)
[2020-07-15] MEDS: PANTOPRAZOLE 40 MG TABLET PO SCH (05:16)
[2020-07-15] MEDS: diazePAM 5 MG TAB PO SCH (05:17)
[2020-07-15] MEDS: LEVOTHYROXINE 125 MCG TAB PO SCH (05:17)
[2020-07-15] MEDS: PIPERACILLIN-TAZOBACTAM 3.375 GM in SODIUM CHLORIDE 0.9% 100 ML IVPB SCH ×3 (05:17→21:23)
[2020-07-15 06:07] LABS: Glucose,Whole Blood 117 mg/dL (75-99)
--- NOTE | 2020-07-15 07:47 | CT ---
EXAMINATION TYPE: CT brain wo con DATE OF EXAM: 07/15/2020 HISTORY: fall/hit head with headache. CT DLP: 1142.4 mGycm. Automated Exposure Control for Dose Reduction was Utilized. TECHNIQUE: CT scan of the head is performed without contrast. COMPARISON: None. FINDINGS: There is no acute intracranial hemorrhage or midline shift identified. There is diffuse v entricular and sulcal prominence consistent with mild to moderate diffuse cerebral atrophy. Cristobal-whit e matter differentiation fairly well maintained. The globes are intact and the visualized sinuses ar e clear. Small left frontal acute scalp hematoma axial image 18. The calvarium intact. IMPRESSION: No acute intracranial hemorrhage or midline shift. There is [id number] diffuse ce rebral atrophy. Small acute left frontal scalp hematoma.
--- NOTE | 2020-07-15 07:54 | XR ---
EXAMINATION TYPE: XR knee complete LT DATE OF EXAM: 07/15/2020 CLINICAL HISTORY: Pain after fall injury. TECHNIQUE: Three views of the left knee are obtained. COMPARISON: None. FINDINGS: There is no acute fracture/dislocation evident in left knee. Mild tricompartment joint spa ce loss. Large spur anterior superior patella at the distal quadriceps tendon attachment. The overly ing soft tissue appears unremarkable. IMPRESSION: There is no acute fracture or dislocation in the left knee.
[2020-07-15 07:57] LABS: African American GFR (CKD) >90 (>60 ml/min/1.73 sqM); Anion Gap 6 mmol/L; Blood Urea Nitrogen 3 mg/dL (9-20); Calcium 7.1 mg/dL (8.4-10.2); Carbon Dioxide 27 mmol/L (22-30); Chloride 104 mmol/L (98-107); Glucose 95 mg/dL (74-99); Non-African American GFR(CKD) 78 (>60 ml/min/1.73 sqM); Potassium 3.7 mmol/L (3.5-5.1); Sodium 137 mmol/L (137-145)
[2020-07-15] MEDS: SERTRALINE 100 MG TAB PO SCH (09:20)
[2020-07-15] MEDS: NICOTINE 14MG/24HR PATCH TRANSDERM SCH (09:20)
[2020-07-15] MEDS: TAMSULOSIN 0.4 MG CAP.ER.24H PO SCH (09:20)
[2020-07-15] MEDS: THIAMINE 100 MG TAB PO SCH ×2 (09:21→20:19)
[2020-07-15] MEDS: PROPRANOLOL LA 80 MG CAP.SA.24H PO SCH (09:32)
[2020-07-15] MEDS: MULTIVITAMINS, THERA 1 EACH TAB PO SCH (09:32)
[2020-07-15 11:43] LABS: Glucose,Whole Blood 85 mg/dL (75-99)
--- NOTE | 2020-07-15 12:38 | P.PN ---
Subjective Progress Note Date: 07/15/20 Principal diagnosis: Generalized weakness, lactic acidosis, possible sepsis This is a 79-year-old male patient was transferred to us from [facility] because of concern of infection and sepsis. The patient presented there were originally yesterday complaining of not feeling well for the past month. He was complaining of weakness and having generalized weakness. He denies having any chest back or neck pain. Apparently he was weak and he was unable to eat anything. His last oral intake was approximately a week ago. He did have however alcohol and there was drinking bourbon whiskey on a daily basis. He was afebrile in the emergency department with temperature of 98 6. His pulse was 68. BP was 100/66. Saturation was 99-100% on 3 L of oxygen by nasal cannula. He was given a chest x-ray that was interpreted as a limited left lower lobe pneumonia and the patient was given a combination of Zosyn and Zithromax. Urinalysis was negative for infection. His initial lactic acid level was at 5.6. His magnesium was low at 1.4, his potassium was low at 2.7 and the patient's creatinine was at 1.3 and the liver function tests were consistent with AST of 134 ALT of 33 alk phos of 188, bilirubin of 1.5 and a total protein of 7.5. The patient was brought into our hospital the patient was given a total of 1.5 L and the patient got another 1 L of normal saline at [facility]. His lactic acid level is gradually improving is currently down to 3.4. He is awake and alert. He is following commands. His white cell count remains low at 5.0. He has chronic thrombocytopenia probably related to alcohol drinking. 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 He has an antibiotic spacer and he was given also a PICC line for long-term antibiotic use. [facility] and were not sure of the details of this. Surgeries that he had at a hospital in [facility] . According to him, he was taken a penicillin-based antibiotics and he completed antibiotic treatment back in May 2020. His right hip surgical wound site is dry clean and intact at this point in time. He is able to bear some weight, yet he has still difficulty with mobility and gait. 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 He used to work in [employer], [employer] and he had issues initially with rotator cuff and he was unable to continue his practice as a general surgeon. 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 I believe his license and his assets have been all frozen and taken away from him and the patient is currently living alone and the [facility]. His story needs to be confirmed independently On 07/15/2020 patient seen in follow-up on selective care unit, apparently patient earlier had the episodes of agitation, and she was given a few doses of Ativan per [facility] protocol, he is lethargic on today's exam, confused. Does not appear to be in any acute distress, a pulse ox of 97%, hemodynamically stable, breathing is nonlabored, he is afebrile. Had loose stool today, his C. diff was negative, his electrolytes are within normal limits, BUN is 3 and creatinine is 1.05. Lung sounds are clear, no rhonchi or wheezing, no cough or congestion, the source of his sepsis is still not clear, orthopedic consultation was noted, and his right hip was not thought to be the source of his infection. CT of the abdomen and pelvis showed multifocal areas of uncomplicated acute colitis, marked fatty infiltration of the liver. Objective - Vital Signs Vital signs: Vital Signs Temp 97.4 F L 07/15/20 08:19 Pulse 59 L 07/15/20 08:19 Resp 16 07/15/20 11:40 BP 99/68 07/15/20 08:19 Pulse Ox 97 07/15/20 08:19 Intake & Output 07/14/20 07/15/20 07/15/20 18:59 06:59 18:59 Intake Total 1040 900 Output Total 1090 1200 Balance -50 -300 Weight 92.6 kg Intake: IV 1040 Sodium Chloride 0.9% 1, 1040 000 ml @ 130 mls/hr IV . Q7H42M [facility] Rx#:[id number] Intake, IV Titration 900 Amount Dextrose 5%-0.9% NaCl 1, 800 000 ml @ 100 mls/hr IV . Q10H [facility] Rx#:[id number] Piperacillin-Tazobactam 3 100 .375 gm In Sodium Chloride 0.9% 100 ml @ 25 mls/hr IVPB Q8H [facility] Rx#: [id number] Output: Urine 590 700 Stool 500 500 Other: Voiding Method Urinal Urinal Urinal # Voids 2 # Bowel Movements 2 - Exam GENERAL EXAM: Drowsy, confused, 59-year-old white male unremarkable with a pulse ox 97% comfortable in no apparent distress. HEAD: Normocephalic/atraumatic. EYES: Normal reaction of pupils, equal size. Conjunctiva pink, sclera white. NOSE: Clear with pink turbinates. THROAT: No erythema or exudates. NECK: No masses, no JVD, no thyroid enlargement, no adenopathy. CHEST: No chest wall deformity. Symmetrical expansion. LUNGS: Equal air entry with no crackles, wheeze, rhonchi or dullness. CVS: Regular rate and rhythm, normal S1 and S2, no gallops, no murmurs, no rubs ABDOMEN: Soft, nontender. No hepatosplenomegaly, normal bowel sounds, no guarding or rigidity. EXTREMITIES: No clubbing, no edema, no cyanosis, 2+ pulses and upper and lower extremities. MUSCULOSKELETAL: Muscle strength and tone normal. SPINE: No scoliosis or deformity SKIN: No rashes CENTRAL NERVOUS SYSTEM: Drowsy and confused. No focal deficits, tone is normal in all 4 extremities. - Labs CBC & Chem 7: 07/14/20 05:43 07/15/20 07:07 Labs: Abnormal Lab Results - Last 24 Hours (Table) 07/14/20 07/14/20 07/14/20 Range/Units 12:07 17:48 17:48 Potassium 3.3 L (3.5-5.1) mmol/L BUN (9-20) mg/dL POC Glucose (mg/dL) (75-99) mg/dL Plasma Lactic Acid Sanjeev 6.8 H* 2.3 H* (0.7-2.0) mmol/L Calcium (8.4-10.2) mg/dL C-Reactive Protein 15.8 H (<10.0) mg/L 07/14/20 07/14/20 07/14/20 Range/Units 18:25 20:28 23:02 Potassium (3.5-5.1) mmol/L BUN (9-20) mg/dL POC Glucose (mg/dL) 125 H 120 H 118 H (75-99) mg/dL Plasma Lactic Acid Sanjeev (0.7-2.0) mmol/L Calcium (8.4-10.2) mg/dL C-Reactive Protein (<10.0) mg/L 07/15/20 07/15/20 07/15/20 Range/Units 00:03 06:04 07:07 Potassium (3.5-5.1) mmol/L BUN 3 L (9-20) mg/dL POC Glucose (mg/dL) 122 H 117 H (75-99) mg/dL Plasma Lactic Acid Sanjeev (0.7-2.0) mmol/L Calcium 7.1 L (8.4-10.2) mg/dL C-Reactive Protein (<10.0) mg/L Assessment and Plan Plan: Assessment: 1 generalized weakness along with lactic acidosis, admitted to the hospital for possible sepsis. No clear source of infection. This could be all related to d iminished oral intake and ongoing alcohol drinking. CT chest showed multifocal areas of uncomplicated acute colitis. The patient seems to be drinking heavily 2 acute lactic acidosis, improving 3 history of a infected right hip prosthesis post right hip arthroplasty that was performed for an AVN of the right hip. The patient had the hardware removed and the patient was given antibiotic spacer and long-term antibiotics with a PICC line if he completed a few months back. Orthopedic consultation was noted, and the right hip was not considered to be the source of infection 4 significant mobility and gait secondary to above 5 history of testicular cancer with previous leg orchiectomy 6 history of thyroid cancer post-thyroidectomy currently on thyroid hormone replacement 7 hypertension 8 hyperlipidemia 9 BPH 10 impaired performance and functional status secondary to above-mentioned comorbidities. 11 Delirium, possibly related to metabolic encephalopathy, and alcohol withdrawal Plan: Continue with empiric antibiotic coverage, would continue IV hydration, with D5 0.9 at a rate of 100, continue close monitoring with CIWA scale, maintain aspiration precautions, maintain safety precautions, orthopedic evaluation was noted, C. diff was ruled out. No evidence of pneumonia , chest x-ray, no Pulmicort plan, we'll continue to monitor I performed a history & physical examination of the patient and discussed their management with my nurse practitioner, Devora Kamara. I reviewed the nurse practitioner's note and agree with the documented findings and plan of care. Lung sounds are positive for diminished breath sounds. The findings and the impression was discussed with the patient. I attest to the documentation by the nurse practitioner. Time with Patient: Less than 30
[2020-07-15] MEDS: LEVOTHYROXINE IVP 100 MCG/5 ML VIAL IV SCH (13:01)
[2020-07-15] MEDS ORDERED: VANCOMYCIN IV PER PHARMACY 1 EACH MISC MISCELLANE PRN (15:32)
[2020-07-15] MEDS ORDERED: VANCOMYCIN 1,750 MG in SODIUM CHLORIDE 0.9% 500 ML 500 ML IVPB ONE (16:30)
[2020-07-15 16:55] LABS: Glucose,Whole Blood 108 mg/dL (75-99)
[2020-07-15 17:51] LABS: Folate, Serum 3.4 ng/mL
--- NOTE | 2020-07-15 18:09 | P.PN ---
Progress Note - Text Progress Note Date: 07/15/20 Chief Complaint: Cough shortness History of presenting complaint: This is a 59-year-old patient of . Patient drinks at least a couple Holt drinks every day. Smoker. Has not been taking his medications for last 3 weeks peeling weak and tired. Has got short of breath. Cough. Some sputum production. Presented to [facility] provided he was transferred down here. With the diagnosis of pneumonia. Started on IV Zosyn and Zithromax. Patient been having loose stools somewhat watery for last couple of days. No abdominal pain. Somewhat shaky and jittery. Decreased appetite. Patient doesn't eat healthy at home. Patient also had high lactic acid. Has chronically depleted platelets from chronic alcohol intake. 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 Tired rundown. Not sure about fever and chills. Admitted with-pneumonia, COPD exacerbation, alcohol withdrawal syndrome, lactic acidosis. Patient was not taking his medications at home for to 3 weeks. Patient was started on IV Zosyn, bronchodilators, steroids. Valium for alcohol withdrawal. CIWA scale.. Today-patient somewhat delirious. Laying in bed. Taking off his clothes. Oral intake low. Patient talking to himself- Progress review of systems cannot be done patient's over delirious Active Medications Albuterol/Ipratropium (Ipratropium-Albuterol 3 Ml Neb) 3 ml INHALATION RT-Q4H PRN PRN Reason: shortness of breath Diazepam (Diazepam 2 Mg Tab) 2 mg PO TID [facility] Piperacillin Sod/Tazobactam (Sod 3.375 gm/ Sodium Chloride) 100 mls @ 25 mls/hr IVPB Q8H [facility] Last Admin: 07/15/20 16:36 Dose: Not Given Documented by: Dextrose/Sodium Chloride (Dextrose 5%-Ns Iv Soln) 1,000 mls @ 100 mls/hr IV .Q10H [facility] Last Admin: 07/14/20 23:50 Dose: 100 mls/hr Documented by: Sodium Chloride (Saline 0.9%) 1,000 mls @ 100 mls/hr IV .Q10H [facility] Vancomycin HCl 1,750 mg/ (Sodium Chloride) 500 mls @ 167 mls/hr IVPB ONCE ONE Stop: 07/15/20 19:29 Last Admin: 07/15/20 16:41 Dose: 167 mls/hr Documented by: Vancomycin HCl 1,500 mg/ (Sodium Chloride) 250 mls @ 125 mls/hr IVPB Q12H [facility] Levothyroxine Sodium (Levothyroxine Ivp 100 Mcg/5 Ml Vial) 75 mcg IV DAILY [facility] Last Admin: 07/15/20 13:01 Dose: 75 mcg Documented by: Lorazepam (Lorazepam 2 Mg/Ml Inj) 1 mg IV Q2HR PRN PRN Reason: CIWA 8 or 9 Last Admin: 07/15/20 13:43 Dose: 1 mg Documented by: Lorazepam (Lorazepam 2 Mg/Ml Inj) 1 mg IV Q1HR PRN PRN Reason: CIWA 10 to 15 Last Admin: 07/14/20 12:48 Dose: 1 mg Documented by: Lorazepam (Lorazepam 2 Mg/Ml Inj) 2 mg IV Q10M PRN PRN Reason: CIWA 16 or higher Stop: 07/15/20 19:24 Lorazepam (Lorazepam 2 Mg/Ml Inj) 2 mg IV Q6HR PRN PRN Reason: Seizures Miscellaneous Information (Pneumonia Protocol Utilized 1 Each Misc) 1 each PO ONCE PRN PRN Reason: Per Protocol Miscellaneous Information (Potassium Replacement Protocol 1 Each Misc) 1 each MISCELLANE DAILY PRN; Protocol PRN Reason: Per Protocol Miscellaneous Information (Vancomycin Trough Due 1 Each Misc) 1 each MISCELLANE ONCE ONE Stop: 07/17/20 16:01 Multivitamins (Multivitamins, Thera 1 Each Tab) 1 each PO DAILY [facility] Last Admin: 07/15/20 09:32 Dose: 1 each Documented by: Nicotine (Nicotine 14mg/24hr Patch) 1 patch TRANSDERM DAILY [facility] Last Admin: 07/15/20 09:20 Dose: 1 patch Documented by: Ondansetron HCl (Ondansetron 4 Mg/2 Ml Vial) 4 mg IVP Q6HR PRN PRN Reason: Nausea And Vomiting Last Admin: 07/14/20 15:25 Dose: 4 mg Documented by: Pantoprazole Sodium (Pantoprazole 40 Mg Tablet) 20 mg PO AC-BRKFST [facility] Last Admin: 07/15/20 05:16 Dose: 20 mg Documented by: Propranolol HCl (Propranolol La 80 Mg Cap.Sa.24h) 80 mg PO DAILY [facility] Last Admin: 07/15/20 09:32 Dose: 80 mg Documented by: Sertraline HCl (Sertraline 100 Mg Tab) 100 mg PO DAILY [facility] Last Admin: 07/15/20 09:20 Dose: 100 mg Documented by: Tamsulosin HCl (Tamsulosin 0.4 Mg Cap.Er.24h) 0.4 mg PO DAILY [facility] Last Admin: 07/15/20 09:20 Dose: 0.4 mg Documented by: Thiamine HCl (Thiamine 100 Mg Tab) 100 mg PO BID-W/MEALS [facility] Last Admin: 07/15/20 09:21 Dose: Not Given Documented by: Physical examination: VITAL SIGNS: 97.4, 1859, 12, 99/68, 97% room air GENERAL: Laying in bed, delirious, documented himself EYES: Pupils equal. Conjunctiva normal. NECK: JVD not raised; masses not palpable. HEART: First and second heart sounds are normal; no edema. LUNGS: Respiratory rate increased, decreased breath sound prolonged expiration some wheezing. ABDOMEN: Soft, nontender, liver spleen not palpable, no masses palpable. PSYCH: Delirious NEUROLOGICAL: No Tremors INVESTIGATIONS, reviewed in the clinical context: Potassium 3.7 creatinine 1.051 and B12 1080, folate 3.4 CRP 18.4 Blood cultures from the outside hospital reporting gram-positive cocci in clusters Admission testing Potassium 3.1 creatinine 1.09 bun is 4 lactic acid 4.8 AST 122 ALT 29 albumin 3.2 Chest x-ray film personally reviewed by me-possible infiltrate Stool negative for C. diff Assessment: -Pneumonia suspected gram-negative orgasm in an immunosuppressed patient from chronic alcoholism -Blood culture reported from the outside hospital gram-positive cocci in clusters, sepsis positive -Acute COPD exacerbation in a current smoker -Chronic nicotine dependence patient cigarette smoker -Alcohol use disorder -Delirium tremens-new today -GERD -Essential hypertension -Hyperlipidemia -BPH -Anxiety not otherwise determined -Lactic acidosis both type I and type II including that from dehydration -Macrocytic anemia and alcoholic combination of possible B12 deficiency and alcohol liver disease -Hypokalemia from diarrhea-improved -Hypoglycemia from decreased oral intake -Acute diarrhea suspect viral and/or infectious, Giardia antigen requested pending Plan: Vancomycin was added. Pharmacy to dose. Consult ID. Cutback Valium to 2 mg every 8. Continued IV fluids. Continue Zosyn. Patient is on D5 saline.
[2020-07-15] MEDS: DEXTROSE 5%-0.9% NACL 1,000 ML IV SCH ×2 (20:18→21:04)
[2020-07-15] MEDS: SODIUM CHLORIDE 0.9% 1,000 ML IV SCH ×2 (20:18→21:22)
[2020-07-15] MEDS: diazePAM 2 MG TAB PO SCH ×2 (20:19→21:23)
[2020-07-16 00:12] LABS: Glucose,Whole Blood 97 mg/dL (75-99)
[2020-07-16] MEDS: LORazepam 2 MG/ML INJ IV PRN ×2 (01:13→03:20)
[2020-07-16] MEDS: PIPERACILLIN-TAZOBACTAM 3.375 GM in SODIUM CHLORIDE 0.9% 100 ML IVPB SCH ×3 (03:55→20:36)
[2020-07-16] MEDS: VANCOMYCIN 1,500 MG in SODIUM CHLORIDE 0.9% 250 ML IVPB SCH ×2 (03:56→17:18)
[2020-07-16] MEDS: DEXTROSE 5%-0.9% NACL 1,000 ML IV SCH ×2 (03:56→15:35)
[2020-07-16 06:05] LABS: Glucose,Whole Blood 98 mg/dL (75-99)
[2020-07-16] MEDS: SODIUM CHLORIDE 0.9% 1,000 ML IV SCH ×2 (06:40→16:37)
[2020-07-16] MEDS: PANTOPRAZOLE 40 MG TABLET PO SCH (06:42)
[2020-07-16] MEDS: THIAMINE 100 MG TAB PO SCH ×2 (06:42→16:51)
[2020-07-16 07:20] LABS: Anisocytosis Slight; HCT 37.2 % (39.0-53.0); HGB 12.5 gm/dL (13.0-17.5); MCH 35.6 pg (25.0-35.0); MCHC 33.6 g/dL (31.0-37.0); MCV 105.8 fL (80.0-100.0); Macrocytosis Marked; Mean Platelet Volume 8.5; RBC 3.52 m/uL (4.30-5.90); RDW 18.2 % (11.5-15.5); WBC 4.5 k/uL (3.8-10.6)
[2020-07-16 07:23] LABS: African American GFR (CKD) >90 (>60 ml/min/1.73 sqM); Anion Gap 6 mmol/L; Blood Urea Nitrogen 4 mg/dL (9-20); Carbon Dioxide 25 mmol/L (22-30); Chloride 105 mmol/L (98-107); Glucose 93 mg/dL (74-99); Non-African American GFR(CKD) 86 (>60 ml/min/1.73 sqM); Potassium 3.5 mmol/L (3.5-5.1); Sodium 136 mmol/L (137-145)
[2020-07-16 07:31] LABS: Platelet Count 53 k/uL (150-450)
[2020-07-16] MEDS: LEVOTHYROXINE IVP 100 MCG/5 ML VIAL IV SCH (08:14)
[2020-07-16] MEDS: TAMSULOSIN 0.4 MG CAP.ER.24H PO SCH (08:15)
[2020-07-16] MEDS: NICOTINE 14MG/24HR PATCH TRANSDERM SCH (08:15)
[2020-07-16] MEDS: SERTRALINE 100 MG TAB PO SCH (08:15)
[2020-07-16] MEDS: diazePAM 2 MG TAB PO SCH ×4 (08:15→20:36)
[2020-07-16] MEDS: PROPRANOLOL LA 80 MG CAP.SA.24H PO SCH (08:15)
[2020-07-16] MEDS: MULTIVITAMINS, THERA 1 EACH TAB PO SCH (08:16)
--- NOTE | 2020-07-16 08:34 | P.CONS ---
History of Present Illness - Reason for Consult Consult date: 07/15/20 Bacteremia Requesting physician: Arthur Neves - Chief Complaint Cough and shortness of breath x one week - History of Present Illness Patient is a 74-year-old male who has been transferred from [facility] after beneficial diagnoses pneumonia at that facility, patient did complain of cough and shortness of breath for 1 week along with fatigue to the ER physician on arrival to this facility the patient has been afebrile and no fever has been recorded the patient did have a normal white count creatinine was normal he did have elevated lactic acid is still is mildly elevated, CRP was elevated pro calcitonin was normal, chest x-ray did not show any acute changes patient did have CT of abdominal pelvis with impression of cannot exclude mild multifocal areas of a complicated acute colitis right greater than left patchy bibasilar atelectasis or acute consolidation patient has been adequately treated with Zosyn blood culture those are done at [facility] came back positive with gram-positive cocci vancomycin was added and infectious disease was consulted for further management of antibiotic therapy most of information has been obtained from review the chart as the patient is currently lethargic and unable to provide any history Review of Systems Positive points has been mentioned in HPI complete review could not be obtained because of his underlying mental status Past Medical History Past Medical History: Cancer, COPD, GERD/Reflux, Hypertension Additional Past Medical History / Comment(s): 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, thyroid CA (2009) post thyroidectomy, COPD, genralised anxiety, BPH, HTN, hyperlipidemia, alcoholism ( drinks bourbon daily), 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 and the hardware was removed and the patient was given a temparory joint with PICC line for antibiotics, smo ker History of Any Multi-Drug Resistant Organisms: None Reported Past Surgical History: Back Surgery, Orthopedic Surgery Additional Past Surgical History / Comment(s): Thyroidectomy , right orchiectomy, RIGHT HIP replacement in february 2019 Past Psychological History: Anxiety Smoking Status: Current every day smoker Past Alcohol Use History: Daily, Heavy Past Drug Use History: None Reported - Past Family History Mother Family Medical History: Myocardial Infarction ([place]) Additional Family Medical History / Comment(s): depression Medications and Allergies Home Medications Medication Instructions Recorded Confirmed Type Levothyroxine Sodium 125 mcg PO DAILY 07/13/20 07/13/20 History Pantoprazole Sodium [Protonix] 20 mg PO DAILY 07/13/20 07/13/20 History Sertraline HCl [Zoloft] 100 mg PO DAILY 07/13/20 07/13/20 History Acetaminophen Tab [Tylenol] 650 mg PO TID PRN 07/14/20 07/14/20 History Ibuprofen 800 mg PO Q8H PRN 07/14/20 07/14/20 History Propranolol LA [Inderal LA] 80 mg PO DAILY 07/14/20 07/14/20 History Sertraline HCl [Zoloft] 100 mg PO DAILY 07/14/20 07/14/20 History Tamsulosin [Flomax] 0.5 mg PO DAILY 07/14/20 07/14/20 History Allergies Allergy/AdvReac Type Severity Reaction Status Date / Time latex Allergy Rash/Hives Verified 07/13/20 18:48 Sulfa (Sulfonamide Allergy Unknown Verified 07/13/20 18:48 Antibiotics) Physical Exam Vitals: Vital Signs Temp Pulse Pulse Resp BP BP BP 07/15/20 12:00 61 16 109/70 07/15/20 11:40 16 07/15/20 09:43 16 07/15/20 08:19 97.4 F L 59 L 12 99/68 07/15/20 03:21 97.8 F 58 L 16 120/75 07/15/20 00:00 97.6 F 58 L 18 108/72 07/14/20 20:00 98.0 F 76 18 103/73 07/14/20 16:00 97.7 F 54 L 14 112/78 Pulse Ox 07/15/20 12:00 98 07/15/20 11:40 07/15/20 09:43 07/15/20 08:19 97 07/15/20 03:21 94 L 07/15/20 00:00 93 L 07/14/20 20:00 96 07/14/20 16:00 94 L Intake and Output 07/15/20 07/15/20 07/15/20 06:59 14:59 22:59 Intake Total 600 Output Total 400 Balance 200 Intake: Intake, IV Titration 600 Amount Dextrose 5%-0.9% NaCl 1, 500 000 ml @ 100 mls/hr IV . Q10H [facility] Rx#:[id number] Piperacillin-Tazobactam 3 100 .375 gm In Sodium Chloride 0.9% 100 ml @ 25 mls/hr IVPB Q8H [facility] Rx#: [id number] Output: Urine 400 Other: Voiding Method Urinal Urinal # Voids 2 Weight 92.6 kg GENERAL DESCRIPTION: An elderly male lying in bed, no distress. No tachypnea or accessory muscle of respiration use. HEENT: Shows Pallor , no scleral icterus. Oral mucous membrane is dry. No pharyngeal erythema or thrush NECK: Trachea central, no thyromegaly. LUNGS: Unlabored breathing. Decreased breath sound at the base. No wheeze or crackle. HEART: S1, S2, regular rate and rhythm. No loud murmur ABDOMEN: Soft, no tenderness , guarding or rigidity, no organomegaly EXTREMITIES: No edema of feet. SKIN: No rash, no masses palpable. NEUROLOGICAL: The patient is lethargic, no neck rigidity, orientation could not be determined Results CBC & Chem 7: 07/16/20 07:00 07/16/20 07:00 Labs: Abnormal Lab Results - Last 24 Hours (Table) 07/14/20 07/14/20 07/14/20 Range/Units 17:48 17:48 18:25 Potassium 3.3 L (3.5-5.1) mmol/L BUN (9-20) mg/dL POC Glucose (mg/dL) 125 H (75-99) mg/dL Plasma Lactic Acid Sanjeev 2.3 H* (0.7-2.0) mmol/L Calcium (8.4-10.2) mg/dL C-Reactive Protein 15.8 H (<10.0) mg/L 07/14/20 07/14/20 07/15/20 Range/Units 20:28 23:02 00:03 Potassium (3.5-5.1) mmol/L BUN (9-20) mg/dL POC Glucose (mg/dL) 120 H 118 H 122 H (75-99) mg/dL Plasma Lactic Acid Sanjeev (0.7-2.0) mmol/L Calcium (8.4-10.2) mg/dL C-Reactive Protein (<10.0) mg/L 07/15/20 07/15/20 Range/Units 06:04 07:07 Potassium (3.5-5.1) mmol/L BUN 3 L (9-20) mg/dL POC Glucose (mg/dL) 117 H (75-99) mg/dL Plasma Lactic Acid Sanjeev (0.7-2.0) mmol/L Calcium 7.1 L (8.4-10.2) mg/dL C-Reactive Protein (<10.0) mg/L Assessment and Plan Assessment: 1-patient with a positive blood culture with gram-positive cocci that has been obtained at [place] [facility] [place] this patient presenting to the hospital with shortness of breath and cough CT abdominal pelvis done here did shows evidence of right greater than left bibasilar consolidation concerning for pneumonia to be the likely source of this bacteremia, CT abdominal pelvis raises the possibility of colitis however no active diarrhea has been reported by the nursing staff and no significant tenderness was noticed (1) Gram-positive bacteremia Current Visit: Yes Status: Acute Code(s): R78.81 - BACTEREMIA SNOMED Code(s): 542564177679 (2) Pneumonia Current Visit: Yes Status: Acute Code(s): J18.9 - PNEUMONIA, UNSPECIFIED ORGANISM SNOMED Code(s): 373258456 Plan: 1-blood cultures will be repeated to document clearance of bacteremia 2-Vancomycin pharmacy to dose target trough of 15 while watching kidney function and Vanco trough closely We will follow on clinical condition and cultures to further adjust medication if needed Thank you for this consultation will follow this patient with you Time with Patient: Greater than 30
[2020-07-16 11:58] LABS: Glucose,Whole Blood 110 mg/dL (75-99)
--- NOTE | 2020-07-16 12:47 | P.PN ---
Subjective Progress Note Date: 07/16/20 On 07/16/2020, the patient is having still ongoing manifestations of delirium tremens and the patient is a chronic alcoholic. The patient is on benzodiazepine including a combination of Valium and Ativan per [facility] protocol. He is lethargic, confused, not agitated. Is able to swallow well and he is not considered to be a swallow risk for aspiration risk. No fever or chills. No nausea or vomiting. No abdominal distention. I was told that the blood culture that was taken in [facility] noted to be positive for gram-negative bacteria and the patient is currently on antibiotics. He is on IV Zosyn. ID is on the case. Note that the patient also had a CAT scan of the abdomen that showed some nonspecific colitis. No evidence of any diarrhea. He is currently wearing a diaper. Note that the patient also had a stool for C. diff evaluation that came back negative. His TSH is elevated and the patient is currently on Synthroid 75 mg IV on a daily basis. Antibiotic coverage including a combination of Zosyn and vancomycin. The blood cultures from our hospital came back negative. Objective - Vital Signs Vital signs: Vital Signs Temp 97.7 F 07/16/20 07:58 Pulse 58 L 07/16/20 11:48 Resp 16 07/16/20 11:48 BP 124/76 07/16/20 11:48 Pulse Ox 96 07/16/20 11:48 Intake & Output 07/15/20 07/16/20 07/16/20 18:59 06:59 18:59 Intake Total 120 Balance 120 Weight 94.5 kg Intake: Oral 120 Other: Voiding Method Urinal Diaper Diaper # Voids 2 2 - Exam GENERAL EXAM: Drowsy, confused, 59-year-old white male unremarkable with a pulse ox 97% comfortable in no apparent distress. HEAD: Normocephalic/atraumatic. EYES: Normal reaction of pupils, equal size. Conjunctiva pink, sclera white. NOSE: Clear with pink turbinates. THROAT: No erythema or exudates. NECK: No masses, no JVD, no thyroid enlargement, no adenopathy. CHEST: No chest wall deformity. Symmetrical expansion. LUNGS: Equal air entry with no crackles, wheeze, rhonchi or dullness. CVS: Regular rate and rhythm, normal S1 and S2, no gallops, no murmurs, no rubs ABDOMEN: Soft, nontender. No hepatosplenomegaly, normal bowel sounds, no guarding or rigidity. EXTREMITIES: No clubbing, no edema, no cyanosis, 2+ pulses and upper and lower extremities. MUSCULOSKELETAL: Muscle strength and tone normal. SPINE: No scoliosis or deformity SKIN: No rashes CENTRAL NERVOUS SYSTEM: Drowsy and confused. No focal deficits, tone is normal in all 4 extremities. - Labs CBC & Chem 7: 07/16/20 07:00 07/16/20 07:00 Labs: Abnormal Lab Results - Last 24 Hours (Table) 07/15/20 07/15/20 07/15/20 Range/Units 07:07 16:05 16:48 RBC (4.30-5.90) m/uL Hgb (13.0-17.5) gm/dL Hct (39.0-53.0) % MCV (80.0-100.0) fL MCH (25.0-35.0) pg RDW (11.5-15.5) % Plt Count (150-450) k/uL Macrocytosis Sodium (137-145) mmol/L BUN (9-20) mg/dL POC Glucose (mg/dL) 108 H (75-99) mg/dL Calcium (8.4-10.2) mg/dL C-Reactive Protein 18.4 H (<10.0) mg/L Vitamin B12 1080.0 H (200.0-944.0) pg/mL 07/16/20 07/16/20 07/16/20 Range/Units 07:00 07:00 11:50 RBC 3.52 L (4.30-5.90) m/uL Hgb 12.5 L (13.0-17.5) gm/dL Hct 37.2 L (39.0-53.0) % MCV 105.8 H (80.0-100.0) fL MCH 35.6 H (25.0-35.0) pg RDW 18.2 H (11.5-15.5) % Plt Count 53 L (150-450) k/uL Macrocytosis Marked A Sodium 136 L (137-145) mmol/L BUN 4 L (9-20) mg/dL POC Glucose (mg/dL) 110 H (75-99) mg/dL Calcium 7.0 L (8.4-10.2) mg/dL C-Reactive Protein (<10.0) mg/L Vitamin B12 (200.0-944.0) pg/mL Assessment and Plan Plan: 1 gram-negative sepsis probably related underlying colitis with secondary generalized weakness along with lactic acidosis, the patient is currently on IV Zosyn. Hemodynamically stable. Lactic acid level is improved and the repeat blood cultures from our hospital has been negative. No diarrhea. No abdominal pain. Abdominal exam is benign. The patient's stool for C. diff has been negative. 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 The patient had the hardware removed and the patient was given antibiotic spacer and long-term antibiotics with a PICC line if he completed a few months back. Orthopedic consultation was noted, and the right hip was not considered to be the source of infection 4 significant mobility and gait secondary to above 5 history of testicular cancer with previous leg orchiectomy 6 history of thyroid cancer post-thyroidectomy currently on thyroid hormone replacement 7 hypertension 8 hyperlipidemia 9 BPH 10 impaired performance and functional status secondary to above-mentioned comorbidities. 11 Delirium, possibly related to metabolic encephalopathy, and alcohol withdrawal and the patient is currently on a CIWA protocol Plan Continue IV Zosyn May discontinue the vancomycin Monitor cultures Treatment of delirium tremens Aspiration precautions We'll continue to follow
--- NOTE | 2020-07-16 15:45 | P.PN ---
Subjective History of presenting complaint:From records This is a 59-year-old patient of . Patient drinks at least a couple Emmons drinks every day. Smoker. Has not been taking his medications for last 3 weeks peeling weak and tired. Has got short of breath. Cough. Some sputum production. Presented to [facility] provided he was transferred down here. With the diagnosis of pneumonia. Started on IV Zosyn and Zithromax. Patient been having loose stools somewhat watery for last couple of days. No abdominal pain. Somewhat shaky and jittery. Decreased appetite. Patient doesn't eat healthy at home. Patient also had high lactic acid. Has chronically depleted platelets from chronic alcohol intake. Chronic stable medical conditions include GERD, hypertension, testicular cancer back in 1979 with a right orchiectomy and radiation treatment, tired cancer treated with thyroidectomy in 2009, BPH, hypertension, hyperlipidemia, avascular necrosis of the right hip joint status post infection and hardware was removed patient re ceived antibiotic for the same. Tired rundown. Not sure about fever and chills. Admitted with-pneumonia, COPD exacerbation, alcohol withdrawal syndrome, lactic acidosis. Patient was not taking his medications at home for to 3 weeks. Patient was started on IV Zosyn, bronchodilators, steroids. Valium for alcohol withdrawal. CIWA scale.. subjective 07/16/20 this is a pleasant 59 years old male with multiple medical problems as below presents with acute colitis as he has CT of the abdomen showed mild multifocal areas of acute colitis, also with alcohol abuse and withdrawal. Patient was non adherent to treatment for 3 weeks. And she has positive blood culture from outside hospital for gram-positive cocci. today patient was limited drowsy complaining of from nausea and abdominal pain about 2/10, patient is still having diarrhea about 4 times of loose stool per day however staff report no diarrhea, mild complaining of coughing and still feels generally weak. Would lower her diazepam from 2 down to 1 mg 3 times a day, continue with Ativan as needed as part of her CIWA protocol.his CIWA score is 19-14 Continue with Zosyn and IV vancomycin and infectious disease on the case as well Objective - Vital Signs Vital signs: Vital Signs Temp 97.7 F 07/16/20 07:58 Pulse 58 L 07/16/20 11:48 Resp 16 07/16/20 11:48 BP 124/76 07/16/20 11:48 Pulse Ox 96 07/16/20 11:48 Intake & Output 07/15/20 07/16/20 07/16/20 18:59 06:59 18:59 Intake Total 870 Balance 870 Weight 94.5 kg Intake: Intake, IV Titration 750 Amount Dextrose 5%-0.9% NaCl 1, 500 000 ml @ 100 mls/hr IV . Q10H ESTELA Rx#:[id number] Vancomycin 1,500 mg In 250 Sodium Chloride 0.9% 250 ml @ 125 mls/hr IVPB Q12H ESTELA Rx#:[id number] Oral 120 Other: Voiding Method Urinal Diaper Diaper # Voids 2 2 2 - Exam -GENERAL: The patient is awake but drowsy, not in any acute distress. Well developed, well nourished. HEENT: Pupils are round and equally reacting to light. EOMI. No scleral icterus. No conjunctival pallor. Normocephalic, atraumatic. No pharyngeal erythema. No thyromegaly. CARDIOVASCULAR: S1 and S2 present. No murmurs, rubs, or gallops. PULMONARY: Chest is clear to auscultation, no wheezing or crackles. ABDOMEN: Soft, nontender, nondistended, normoactive bowel sounds. No palpable organomegaly. MUSCULOSKELETAL: No joint swelling or deformity. EXTREMITIES: No cyanosis, clubbing, or pedal edema. NEUROLOGICAL: Gross neurological examination did not reveal any focal deficits. SKIN: No rashes. no petechiae. - Labs CBC & Chem 7: 07/16/20 07:00 07/16/20 07:00 Labs: Abnormal Lab Results - Last 24 Hours (Table) 07/15/20 07/15/20 07/15/20 Range/Units 07:07 16:05 16:48 RBC (4.30-5.90) m/uL Hgb (13.0-17.5) gm/dL Hct (39.0-53.0) % MCV (80.0-100.0) fL MCH (25.0-35.0) pg RDW (11.5-15.5) % Plt Count (150-450) k/uL Macrocytosis Sodium (137-145) mmol/L BUN (9-20) mg/dL POC Glucose (mg/dL) 108 H (75-99) mg/dL Calcium (8.4-10.2) mg/dL C-Reactive Protein 18.4 H (<10.0) mg/L Vitamin B12 1080.0 H (200.0-944.0) pg/mL 07/16/20 07/16/20 07/16/20 Range/Units 07:00 07:00 11:50 RBC 3.52 L (4.30-5.90) m/uL Hgb 12.5 L (13.0-17.5) gm/dL Hct 37.2 L (39.0-53.0) % MCV 105.8 H (80.0-100.0) fL MCH 35.6 H (25.0-35.0) pg RDW 18.2 H (11.5-15.5) % Plt Count 53 L (150-450) k/uL Macrocytosis Marked A Sodium 136 L (137-145) mmol/L BUN 4 L (9-20) mg/dL POC Glucose (mg/dL) 110 H (75-99) mg/dL Calcium 7.0 L (8.4-10.2) mg/dL C-Reactive Protein (<10.0) mg/L Vitamin B12 (200.0-944.0) pg/mL Assessment and Plan Assessment: -possible acute colitis -Blood culture reported from the outside hospital gram-positive cocci in clusters, sepsis positive -alcohol abuse and alcohol withdrawal -Chronic nicotine dependence patient cigarette smoker - COPD, not acute exacerbation -GERD -Essential hypertension -Hyperlipidemia -BPH -Anxiety not otherwise determined -Lactic acidosis both type I and type II including that from dehydration -Macrocytic anemia and alcoholic combination of possible B12 deficiency and alcohol liver disease -Hypokalemia from diarrhea-improved -Hypoglycemia from decreased oral intake Plan: continue with antibiotics Zosyn and IV vancomycin pharmacy to dose per ID team recommendation Follow-up culture results Continue with CIWA protocol, Valium Continue with IV hydration Follow-up with close closely and follow-up recommendation by other consultants DVT prophylaxis: Subcutaneous heparin GI prophylaxis: Protonix Prognosis is guarded
[2020-07-16 17:19] LABS: Glucose,Whole Blood 94 mg/dL (75-99)
--- NOTE | 2020-07-16 20:12 | PN ---
PROGRESS NOTE DATE OF SERVICE: 07/16/2020 REASON FOR FOLLOW UP: Gram-positive bacteremia, possible pneumonia. INTERVAL HISTORY: Patient is currently afebrile. The patient seems slightly more awake and alert compared to yesterday. No chest pain, no shortness. Has minimal cough. No abdominal pain. No diarrhea has been reported. PHYSICAL EXAMINATION: Blood pressure 110/80 with a pulse of 58, temp 97.3, he is 100% on room air. General description is a middle-aged male lying in bed in no distress. Respiratory system: Unlabored breathing, decreased breath sounds at the base. No wheeze. Heart S1, S2. Regular rate and rhythm. Abdomen is soft, no tenderness. LABS: Hemoglobin is 12.5, white count 4.5, creatinine 0.97. Blood cultures obtained have been pending so far. DIAGNOSTIC IMPRESSION AND PLAN: Patient with gram-positive bacteremia with question of possible pneumonia. The patient is covered with vancomycin. Repeat blood culture has been ordered and those will be followed and will try to obtain further information on the blood culture that was done in the outpatient facility. We will monitor clinical course closely. MMODL / IJN: [id number] /
[2020-07-16] MEDS: HEPARIN SODIUM,PORCINE 5,000 UNIT/ML 1 ML VIAL SQ SCH (20:35)
[2020-07-17 00:07] LABS: Glucose,Whole Blood 82 mg/dL (75-99)
[2020-07-17] MEDS: DEXTROSE 5%-0.9% NACL 1,000 ML IV SCH ×2 (01:55→16:23)
[2020-07-17] MEDS: VANCOMYCIN 1,500 MG in SODIUM CHLORIDE 0.9% 250 ML IVPB SCH (04:13)
[2020-07-17] MEDS: SODIUM CHLORIDE 0.9% 1,000 ML IV SCH ×3 (04:14→22:16)
[2020-07-17] MEDS: PIPERACILLIN-TAZOBACTAM 3.375 GM in SODIUM CHLORIDE 0.9% 100 ML IVPB SCH ×3 (04:14→20:37)
[2020-07-17 06:18] LABS: Glucose,Whole Blood 86 mg/dL (75-99)
[2020-07-17] MEDS: PANTOPRAZOLE 40 MG TABLET PO SCH (06:42)
[2020-07-17] MEDS: THIAMINE 100 MG TAB PO SCH ×2 (06:42→16:23)
[2020-07-17 07:30] LABS: Anisocytosis Slight; Basophils % (A) 1 %; Eosinophils # (A) 0.2 k/uL (0-0.7); Eosinophils % (A) 5 %; HCT 37.6 % (39.0-53.0); HGB 12.4 gm/dL (13.0-17.5); Lymphocytes # (A) 0.9 k/uL (1.0-4.8); Lymphocytes % (A) 18 %; MCH 35.1 pg (25.0-35.0); MCHC 33.1 g/dL (31.0-37.0); MCV 106.1 fL (80.0-100.0); Macrocytosis Marked; Mean Platelet Volume 8.8; Monocytes # (A) 0.3 k/uL (0-1.0); Monocytes % (A) 6 %; Neutrophils # (A) 3.4 k/uL (1.3-7.7); Neutrophils % (A) 68 %; RBC 3.54 m/uL (4.30-5.90); RDW 18.3 % (11.5-15.5)
[2020-07-17 07:38] LABS: African American GFR (CKD) >90 (>60 ml/min/1.73 sqM); Anion Gap 7 mmol/L; Blood Urea Nitrogen 4 mg/dL (9-20); Calcium 7.2 mg/dL (8.4-10.2); Carbon Dioxide 25 mmol/L (22-30); Chloride 103 mmol/L (98-107); Glucose 86 mg/dL (74-99); Non-African American GFR(CKD) >90 (>60 ml/min/1.73 sqM); Potassium 2.8 mmol/L (3.5-5.1); Sodium 135 mmol/L (137-145)
[2020-07-17 07:40] LABS: Platelet Count 70 k/uL (150-450)
[2020-07-17] MEDS: diazePAM 2 MG TAB PO SCH ×2 (07:42→20:37)
[2020-07-17] MEDS: PROPRANOLOL LA 80 MG CAP.SA.24H PO SCH (07:51)
[2020-07-17] MEDS: POTASSIUM CHLORIDE ER 20 MEQ TAB.ER PO SCH ×3 (07:59→11:48)
[2020-07-17] MEDS: HEPARIN SODIUM,PORCINE 5,000 UNIT/ML 1 ML VIAL SQ SCH ×2 (07:59→20:36)
[2020-07-17] MEDS: SERTRALINE 100 MG TAB PO SCH (07:59)
[2020-07-17] MEDS: TAMSULOSIN 0.4 MG CAP.ER.24H PO SCH (07:59)
[2020-07-17] MEDS: NICOTINE 14MG/24HR PATCH TRANSDERM SCH (08:00)
[2020-07-17] MEDS: MULTIVITAMINS, THERA 1 EACH TAB PO SCH (08:00)
[2020-07-17] MEDS: LEVOTHYROXINE IVP 100 MCG/5 ML VIAL IV SCH (08:00)
[2020-07-17 11:59] LABS: Glucose,Whole Blood 105 mg/dL (75-99)
--- NOTE | 2020-07-17 12:09 | P.PN ---
Subjective Progress Note Date: 07/17/20 Principal diagnosis: Patient is seen today 07/17/2020 in follow-up on the selective care unit. He is currently resting comfortably in bed. Still having some manifestations of del irium tremens. The patient is a chronic alcoholic. He remains on combination of Valium and Ativan. His last Ativan was over 24 hours ago. He is arousable. Oriented to place and person. He is maintaining O2 saturation in the mid 90s on room air. He's been afebrile. Blood cultures reveal no growth. White count 5.0. Hemoglobin 12.4. MCV 106.1. Sodium 135. Potassium 2.8. Creatinine 0.91. Objective - Vital Signs Vital signs: Vital Signs Temp 97.6 F 07/17/20 11:47 Pulse 59 L 07/17/20 11:47 Resp 18 07/17/20 07:49 BP 101/63 07/17/20 11:47 Pulse Ox 98 07/17/20 11:47 Intake & Output 07/16/20 07/17/20 07/17/20 18:59 06:59 18:59 Intake Total 870 200 90 Output Total 500 Balance 870 -300 90 Weight 94.8 kg Intake: Intake, IV Titration 750 100 Amount Dextrose 5%-0.9% NaCl 1, 500 000 ml @ 75 mls/hr IV . [id number] ESTELA Rx#:[id number] Piperacillin-Tazobactam 3 100 .375 gm In Sodium Chloride 0.9% 100 ml @ 25 mls/hr IVPB Q8H ESTELA Rx#: [id number] Vancomycin 1,500 mg In 250 Sodium Chloride 0.9% 250 ml @ 125 mls/hr IVPB Q12H ESTELA Rx#:[id number] Oral 120 100 90 Output: Stool 500 Other: Voiding Method Diaper Diaper # Voids 2 4 0 - Exam GENERAL EXAM: Drowsy, confused, 59-year-old male patient, on room air with a pulse ox 97% comfortable in no apparent distress. HEAD: Normocephalic/atraumatic. EYES: Normal reaction of pupils, equal size. Conjunctiva pink, sclera white. NOSE: Clear with pink turbinates. THROAT: No erythema or exudates. NECK: No masses, no JVD, no thyroid enlargement, no adenopathy. CHEST: No chest wall deformity. Symmetrical expansion. LUNGS: Equal air entry with no crackles, wheeze, rhonchi or dullness. CVS: Regular rate and rhythm, normal S1 and S2, no gallops, no murmurs, no rubs ABDOMEN: Soft, nontender. No hepatosplenomegaly, normal bowel sounds, no guarding or rigidity. EXTREMITIES: No clubbing, no edema, no cyanosis, 2+ pulses and upper and lower extremities. MUSCULOSKELETAL: Muscle strength and tone normal. SPINE: No scoliosis or deformity SKIN: No rashes CENTRAL NERVOUS SYSTEM: Drowsy but arousable. No focal deficits, tone is normal in all 4 extremities. - Labs CBC & Chem 7: 07/17/20 07:05 07/17/20 07:05 Labs: Abnormal Lab Results - Last 24 Hours (Table) 07/17/20 07/17/20 07/17/20 Range/Units 07:05 07:05 11:52 RBC 3.54 L (4.30-5.90) m/uL Hgb 12.4 L (13.0-17.5) gm/dL Hct 37.6 L (39.0-53.0) % MCV 106.1 H (80.0-100.0) fL MCH 35.1 H (25.0-35.0) pg RDW 18.3 H (11.5-15.5) % Plt Count 70 L (150-450) k/uL Lymphocytes # 0.9 L (1.0-4.8) k/uL Macrocytosis Marked A Sodium 135 L (137-145) mmol/L Potassium 2.8 L (3.5-5.1) mmol/L BUN 4 L (9-20) mg/dL POC Glucose (mg/dL) 105 H (75-99) mg/dL Calcium 7.2 L (8.4-10.2) mg/dL Microbiology - Last 24 Hours (Table) 07/15/20 16:05 Blood Culture - Preliminary Blood No Growth after 24 hours Assessment and Plan Assessment: 1 gram-negative sepsis probably related underlying colitis with secondary generalized weakness along with lactic acidosis, the patient is currently on IV Zosyn. Hemodynamically stable. Lactic acid level is improved and the repeat blood cultures from our hospital has been negative. No diarrhea. No abdominal pain. Abdominal exam is benign. The patient's stool for C. diff has been negative. 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 The patient had the hardware removed and the patient was given antibiotic spacer and long-term antibiotics with a PICC line if he completed a few months back. Orthopedic consultation was noted, and the right hip was not considered to be the source of infection 4 significant mobility and gait secondary to above 5 history of testicular cancer with previous leg orchiectomy 6 history of thyroid cancer post-thyroidectomy currently on thyroid hormone replacement 7 hypertension 8 hyperlipidemia 9 BPH 10 impaired performance and functional status secondary to above-mentioned comorbidities. 11 Delirium, possibly related to metabolic encephalopathy, and alcohol withdrawal and the patient is currently on a CIWA protocol Plan The patient was seen and evaluated by Dr. Cash We'll continue with the current treatment plan Currently on Zosyn and vancomycin Infectious disease is on the case. Remains in the CIWA protocol We'll continue to follow I, the cosigning physician, performed a history & physical examination of the patient. Lungs sounds are clear. Maintaining good O2 saturations in the 90s on room air. I discussed the assessment and plan of care with my nurse practitioner, Rashida Boo. I attest to the above note as dictated by her.
--- NOTE | 2020-07-17 12:25 | P.PN ---
Subjective History of presenting complaint:From records This is a 59-year-old patient of . Patient drinks at least a couple [place] drinks every day. Smoker. Has not been taking his medications for last 3 weeks peeling weak and tired. Has got short of breath. Cough. Some sputum production. Presented to [facility] provided he was transferred down here. With the diagnosis of pneumonia. Started on IV Zosyn and Zithromax. Patient been having loose stools somewhat watery for last couple of days. No abdominal pain. Somewhat shaky and jittery. Decreased appetite. Patient doesn't eat healthy at home. Patient also had high lactic acid. Has chronically depleted platelets from chronic alcohol intake. Chronic stable medical conditions include GERD, hypertension, testicular cancer back in 1979 with a right orchiectomy and radiation treatment, tired cancer treated with thyroidectomy in 2009, BPH, hypertension, hyperlipidemia, avascular necrosis of the right hip joint status post infection and hardware was removed patient re ceived antibiotic for the same. Tired rundown. Not sure about fever and chills. Admitted with-pneumonia, COPD exacerbation, alcohol withdrawal syndrome, lactic acidosis. Patient was not taking his medications at home for to 3 weeks. Patient was started on IV Zosyn, bronchodilators, steroids. Valium for alcohol withdrawal. CIWA scale.. subjective 07/16/20 this is a pleasant 59 years old male with multiple medical problems as below presents with acute colitis as he has CT of the abdomen showed mild multifocal areas of acute colitis, also with alcohol abuse and withdrawal. Patient was non adherent to treatment for 3 weeks. And she has positive blood culture from outside hospital for gram-positive cocci. today patient was limited drowsy complaining of from nausea and abdominal pain about 2/10, patient is still having diarrhea about 4 times of loose stool per day however staff report no diarrhea, mild complaining of coughing and still feels generally weak. Would lower her diazepam from 2 down to 1 mg 3 times a day, continue with Ativan as needed as part of her CIWA protocol.his CIWA score is 19-14 Continue with Zosyn and IV vancomycin and infectious disease on the case as well 07/17/2020 patient is not eating is male well, today he H 25% of his breakfast. We will do a swallow evaluation His breathing quietly, no chest pain or dyspnea No abdominal pain. Patient is constipated but he is not eating well so I will not give much of laxative. As the patient why he was not taking his medication for 3 weeks, he said it was for 1-2 weeks he was showering, not taking medication sleeping a lot because of his daily drinking of alcohol, patient states that he drinks 2 glasses of bourbon each day but is willing to quit upon discharge Patient remains on Zosyn and IV vancomycin, we will lower his volume to 1 mg to once at bedtime Objective - Vital Signs Vital signs: Vital Signs Temp 97.6 F 07/17/20 11:47 Pulse 59 L 07/17/20 11:47 Resp 18 07/17/20 07:49 BP 101/63 07/17/20 11:47 Pulse Ox 98 07/17/20 11:47 Intake & Output 07/16/20 07/17/20 07/17/20 18:59 06:59 18:59 Intake Total 870 200 90 Output Total 500 Balance 870 -300 90 Weight 94.8 kg Intake: Intake, IV Titration 750 100 Amount Dextrose 5%-0.9% NaCl 1, 500 000 ml @ 75 mls/hr IV . [id number] ESTELA Rx#:[id number] Piperacillin-Tazobactam 3 100 .375 gm In Sodium Chloride 0.9% 100 ml @ 25 mls/hr IVPB Q8H ESTELA Rx#: [id number] Vancomycin 1,500 mg In 250 Sodium Chloride 0.9% 250 ml @ 125 mls/hr IVPB Q12H ESTELA Rx#:[id number] Oral 120 100 90 Output: Stool 500 Other: Voiding Method Diaper Diaper # Voids 2 4 0 - Exam -GENERAL: The patient is awake but drowsy, not in any acute distress. Well developed, well nourished. HEENT: Pupils are round and equally reacting to light. EOMI. No scleral icterus. No conjunctival pallor. Normocephalic, atraumatic. No pharyngeal erythema. No thyromegaly. CARDIOVASCULAR: S1 and S2 present. No murmurs, rubs, or gallops. PULMONARY: Chest is clear to auscultation, no wheezing or crackles. ABDOMEN: Soft, nontender, nondistended, normoactive bowel sounds. No palpable organomegaly. MUSCULOSKELETAL: No joint swelling or deformity. EXTREMITIES: No cyanosis, clubbing, or pedal edema. NEUROLOGICAL: Gross neurological examination did not reveal any focal deficits. SKIN: No rashes. no petechiae. - Labs CBC & Chem 7: 07/17/20 07:05 07/17/20 07:05 Labs: Abnormal Lab Results - Last 24 Hours (Table) 07/17/20 07/17/20 07/17/20 Range/Units 07:05 07:05 11:52 RBC 3.54 L (4.30-5.90) m/uL Hgb 12.4 L (13.0-17.5) gm/dL Hct 37.6 L (39.0-53.0) % MCV 106.1 H (80.0-100.0) fL MCH 35.1 H (25.0-35.0) pg RDW 18.3 H (11.5-15.5) % Plt Count 70 L (150-450) k/uL Lymphocytes # 0.9 L (1.0-4.8) k/uL Macrocytosis Marked A Sodium 135 L (137-145) mmol/L Potassium 2.8 L (3.5-5.1) mmol/L BUN 4 L (9-20) mg/dL POC Glucose (mg/dL) 105 H (75-99) mg/dL Calcium 7.2 L (8.4-10.2) mg/dL Microbiology - Last 24 Hours (Table) 07/15/20 16:05 Blood Culture - Preliminary Blood No Growth after 24 hours Assessment and Plan Assessment: -possible acute colitis -Blood culture reported from the outside hospital gram-positive cocci in clusters, sepsis positive -low calorie intake -alcohol abuse and alcohol withdrawal -Chronic nicotine dependence patient cigarette smoker - COPD, not acute exacerbation -GERD -Essential hypertension -Hyperlipidemia -BPH -Anxiety not otherwise determined -Lactic acidosis both type I and type II including that from dehydration -Macrocytic anemia and alcoholic combination of possible B12 deficiency and alcohol liver disease -Hypokalemia from diarrhea-improved -Hypoglycemia from decreased oral intake Plan: continue with antibiotics Zosyn and IV vancomycin pharmacy to dose per ID team recommendation Follow-up culture results Continue with CIWA protocol, Valium Continue with IV hydration check swallow evaluation Follow-up with close closely and follow-up recommendation by other consultants DVT prophylaxis: Subcutaneous heparin GI prophylaxis: Protonix Prognosis is guarded
[2020-07-17] MEDS ORDERED: VANCOMYCIN TROUGH DUE 1 EACH MISC MISCELLANE ONE (16:00)
[2020-07-17 17:06] LABS: Glucose,Whole Blood 101 mg/dL (75-99)
[2020-07-17 23:57] LABS: Glucose,Whole Blood 104 mg/dL (75-99)
--- NOTE | 2020-07-18 01:06 | PN ---
PROGRESS NOTE DATE OF SERVICE: 07/17/2020 REASON FOR FOLLOWUP: 1. Positive blood culture. 2. Pneumonia possible aspiration. INTERVAL HISTORY: The patient is currently afebrile. The patient is breathing comfortably on room air. He was noted to be slightly sleepy and lethargic and unable to provide any history. No vomiting or diarrhea reported by nursing staff. PHYSICAL EXAMINATION: Blood pressure 104/63 with a pulse of 57, temperature 97.6. He is 97% on room air. General description is a middle-aged male lying in bed in no distress. RESPIRATORY SYSTEM: Unlabored breathing, decreased breath sounds at the bases. No wheeze. HEART: S1, S2. Regular rate and rhythm. ABDOMEN: Soft, no tenderness. LABS: Hemoglobin is 12.4, white count 5.0, BUN of 4, creatinine 0.91. Vancomycin trough is 17.7. Blood culture done here has been negative. Blood cultures done at [facility] was finalized micrococcus species. DIAGNOSTIC IMPRESSION AND PLAN: 1. Patient with a positive blood culture with micrococcus likely contaminant. Blood culture here has been negative. Discontinue the vancomycin. 2. Patient with possible pneumonia question of aspiration covered with Zosyn and seems to show clinical response to continue and monitor his clinical course closely. MMODL / IJN: [id number] /
[2020-07-18] MEDS: PIPERACILLIN-TAZOBACTAM 3.375 GM in SODIUM CHLORIDE 0.9% 100 ML IVPB SCH ×3 (03:26→20:26)
[2020-07-18 06:05] LABS: Glucose,Whole Blood 84 mg/dL (75-99)
[2020-07-18] MEDS: PANTOPRAZOLE 40 MG TABLET PO SCH ×2 (07:02→23:31)
[2020-07-18] MEDS: THIAMINE 100 MG TAB PO SCH ×2 (07:02→12:46)
[2020-07-18 07:36] LABS: African American GFR (CKD) >90 (>60 ml/min/1.73 sqM); Anion Gap 5 mmol/L; Blood Urea Nitrogen 4 mg/dL (9-20); Calcium 7.2 mg/dL (8.4-10.2); Carbon Dioxide 26 mmol/L (22-30); Chloride 105 mmol/L (98-107); Glucose 91 mg/dL (74-99); Magnesium 1.1 mg/dL (1.6-2.3); Non-African American GFR(CKD) 83 (>60 ml/min/1.73 sqM); Sodium 136 mmol/L (137-145)
[2020-07-18 07:43] LABS: Potassium 2.7 mmol/L (3.5-5.1)
[2020-07-18] MEDS ORDERED: Magnesium Replacement Protocol 1 EACH MISC MISCELLANE PRN ×2 (07:50→09:23)
[2020-07-18] MEDS ORDERED: Potassium Replacement Protocol 1 EACH MISC MISCELLANE PRN ×2 (07:50→21:14)
[2020-07-18 08:00] LABS: Anisocytosis Slight; Basophils # (A) 0.1 k/uL (0-0.2); Basophils % (A) 1 %; Eosinophils # (A) 0.2 k/uL (0-0.7); Eosinophils % (A) 3 %; HCT 36.5 % (39.0-53.0); HGB 12.1 gm/dL (13.0-17.5); Lymphocytes # (A) 0.9 k/uL (1.0-4.8); Lymphocytes % (A) 16 %; MCH 34.4 pg (25.0-35.0); MCV 104.1 fL (80.0-100.0); Macrocytosis Moderate; Mean Platelet Volume 7.6; Monocytes # (A) 0.5 k/uL (0-1.0); Monocytes % (A) 8 %; Neutrophils # (A) 4.1 k/uL (1.3-7.7); Neutrophils % (A) 70 %; RBC 3.51 m/uL (4.30-5.90); RDW 18.8 % (11.5-15.5); WBC 5.9 k/uL (3.8-10.6)
[2020-07-18 08:17] LABS: Platelet Count 95 k/uL (150-450)
[2020-07-18] MEDS: POTASSIUM CHLORIDE ER 20 MEQ TAB.ER PO SCH ×6 (08:29→23:31)
[2020-07-18] MEDS: MAGNESIUM SULFATE-D5W PMX 1 GM in DEXTROSE/WATER 1 100ML.BAG IVPB SCH ×3 (08:29→12:46)
[2020-07-18] MEDS: NICOTINE 14MG/24HR PATCH TRANSDERM SCH (08:30)
[2020-07-18] MEDS: HEPARIN SODIUM,PORCINE 5,000 UNIT/ML 1 ML VIAL SQ SCH ×2 (08:30→20:26)
[2020-07-18] MEDS: PROPRANOLOL LA 80 MG CAP.SA.24H PO SCH (08:30)
[2020-07-18] MEDS: MULTIVITAMINS, THERA 1 EACH TAB PO SCH (08:30)
[2020-07-18] MEDS: LEVOTHYROXINE IVP 100 MCG/5 ML VIAL IV SCH (08:30)
[2020-07-18] MEDS: SERTRALINE 100 MG TAB PO SCH (08:31)
[2020-07-18 11:48] LABS: Glucose,Whole Blood 120 mg/dL (75-99)
[2020-07-18] MEDS: SODIUM CHLORIDE 0.9% 1,000 ML IV SCH ×2 (12:47→20:14)
--- NOTE | 2020-07-18 13:24 | P.PN ---
Subjective History of presenting complaint:From records This is a 59-year-old patient of . Patient drinks at least a couple Jasper drinks every day. Smoker. Has not been taking his medications for last 3 weeks peeling weak and tired. Has got short of breath. Cough. Some sputum production. Presented to [facility] provided he was transferred down here. With the diagnosis of pneumonia. Started on IV Zosyn and Zithromax. Patient been having loose stools somewhat watery for last couple of days. No abdominal pain. Somewhat shaky and jittery. Decreased appetite. Patient doesn't eat healthy at home. Patient also had high lactic acid. Has chronically depleted platelets from chronic alcohol intake. Chronic stable medical conditions include GERD, hypertension, testicular cancer back in 1979 with a right orchiectomy and radiation treatment, tired cancer treated with thyroidectomy in 2009, BPH, hypertension, hyperlipidemia, avascular necrosis of the right hip joint status post infection and hardware was removed patient re ceived antibiotic for the same. Tired rundown. Not sure about fever and chills. Admitted with-pneumonia, COPD exacerbation, alcohol withdrawal syndrome, lactic acidosis. Patient was not taking his medications at home for to 3 weeks. Patient was started on IV Zosyn, bronchodilators, steroids. Valium for alcohol withdrawal. CIWA scale.. subjective 07/16/20 this is a pleasant 59 years old male with multiple medical problems as below presents with acute colitis as he has CT of the abdomen showed mild multifocal areas of acute colitis, also with alcohol abuse and withdrawal. Patient was non adherent to treatment for 3 weeks. And she has positive blood culture from outside hospital for gram-positive cocci. today patient was limited drowsy complaining of from nausea and abdominal pain about 2/10, patient is still having diarrhea about 4 times of loose stool per day however staff report no diarrhea, mild complaining of coughing and still feels generally weak. Would lower her diazepam from 2 down to 1 mg 3 times a day, continue with Ativan as needed as part of her CIWA protocol.his CIWA score is 19-14 Continue with Zosyn and IV vancomycin and infectious disease on the case as well 07/17/2020 patient is not eating is male well, today he H 25% of his breakfast. We will do a swallow evaluation His breathing quietly, no chest pain or dyspnea No abdominal pain. Patient is constipated but he is not eating well so I will not give much of laxative. As the patient why he was not taking his medication for 3 weeks, he said it was for 1-2 weeks he was showering, not taking medication sleeping a lot because of his daily drinking of alcohol, patient states that he drinks 2 glasses of bourbon each day but is willing to quit upon discharge Patient remains on Zosyn and IV vancomycin, we will lower his volume to 1 mg to once at bedtime 07/18/2020 Patient is more awake and sitting up in bed today, he denies respiratory symptoms or abdominal pain He ate a little better today as 50% of his meal in the breakfast. Swallow evaluation is still pending Patient also ulcers all questions appropriately, he admits he was not eating well for one week prior to, to the hospital because of nausea and dyspnea and generalized medical weakness and condition but today he states no nausea or vo miting and he does not think he needs any nausea medication. Patient declines and he swallowed a problem. Patient breathing quietly with no abdominal pain or tenderness or distention. Vitals are stable. CBC is a stable, platelets is slightly better today at 95, potassium is significantly low at 2.7 with magnesium low at 1.1, being replaced. Objective - Vital Signs Vital signs: Vital Signs Temp 96.8 F L 07/18/20 08:00 Pulse 57 L 07/18/20 12:00 Resp 16 07/18/20 12:00 BP 109/73 07/18/20 12:00 Pulse Ox 95 07/18/20 12:00 Intake & Output 07/17/20 07/18/20 07/18/20 18:59 06:59 18:59 Intake Total 280 120 Output Total 1025 650 200 Balance -745 -650 -80 Weight 95 kg Intake: Intake, IV Titration 100 Amount Piperacillin-Tazobactam 3 100 .375 gm In Sodium Chloride 0.9% 100 ml @ 25 mls/hr IVPB Q8H [facility] Rx#: [id number] Oral 180 120 Output: Urine 1025 650 200 Stool 0 0 Other: Voiding Method Urinal Urinal # Voids 2 1 - Exam -GENERAL: The patient is awake but drowsy, not in any acute distress. Well developed, well nourished. HEENT: Pupils are round and equally reacting to light. EOMI. No scleral icterus. No conjunctival pallor. Normocephalic, atraumatic. No pharyngeal erythema. No thyromegaly. CARDIOVASCULAR: S1 and S2 present. No murmurs, rubs, or gallops. PULMONARY: Chest is clear to auscultation, no wheezing or crackles. ABDOMEN: Soft, nontender, nondistended, normoactive bowel sounds. No palpable organomegaly. MUSCULOSKELETAL: No joint swelling or deformity. EXTREMITIES: No cyanosis, clubbing, or pedal edema. NEUROLOGICAL: Gross neurological examination did not reveal any focal deficits. SKIN: No rashes. no petechiae. - Labs CBC & Chem 7: 07/18/20 06:49 07/18/20 06:49 Labs: Abnormal Lab Results - Last 24 Hours (Table) 07/17/20 07/17/20 07/17/20 Range/Units 16:38 17:02 23:56 RBC (4.30-5.90) m/uL Hgb (13.0-17.5) gm/dL Hct (39.0-53.0) % MCV (80.0-100.0) fL RDW (11.5-15.5) % Plt Count (150-450) k/uL Lymphocytes # (1.0-4.8) k/uL Sodium (137-145) mmol/L Potassium 3.0 L (3.5-5.1) mmol/L BUN (9-20) mg/dL POC Glucose (mg/dL) 101 H 104 H (75-99) mg/dL Calcium (8.4-10.2) mg/dL Magnesium (1.6-2.3) mg/dL 07/18/20 07/18/20 07/18/20 Range/Units 06:49 06:49 11:40 RBC 3.51 L (4.30-5.90) m/uL Hgb 12.1 L (13.0-17.5) gm/dL Hct 36.5 L (39.0-53.0) % MCV 104.1 H (80.0-100.0) fL RDW 18.8 H (11.5-15.5) % Plt Count 95 L (150-450) k/uL Lymphocytes # 0.9 L (1.0-4.8) k/uL Sodium 136 L (137-145) mmol/L Potassium 2.7 L* (3.5-5.1) mmol/L BUN 4 L (9-20) mg/dL POC Glucose (mg/dL) 120 H (75-99) mg/dL Calcium 7.2 L (8.4-10.2) mg/dL Magnesium 1.1 L (1.6-2.3) mg/dL Microbiology - Last 24 Hours (Table) 07/15/20 16:05 Blood Culture - Preliminary Blood No Growth after 48 hours Assessment and Plan Assessment: -possible acute colitis. Less likely pneumonia -Blood culture reported from the outside hospital gram-positive cocci in clusters, sepsis positive -low calorie intake. -Severe electrolyte abnormality with low potassium and magnesium, been placed -alcohol abuse and alcohol withdrawal -Chronic nicotine dependence patient cigarette smoker - COPD, not acute exacerbation -GERD -Essential hypertension -Hyperlipidemia -BPH -Anxiety not otherwise determined -Lactic acidosis both type I and type II including that from dehydration -Macrocytic anemia and alcoholic combination of possible B12 deficiency and alcohol liver disease -Hypokalemia from diarrhea-improved -Hypoglycemia from decreased oral intake Plan: continue with antibiotics Zosyn per ID team recommendation Follow-up culture results Continue with CIWA protocol, Valium Continue with IV hydration check swallow evaluation Follow-up with close closely and follow-up recommendation by other consultants DVT prophylaxis: Subcutaneous heparin GI prophylaxis: Protonix Prognosis is guarded
--- NOTE | 2020-07-18 13:47 | P.PN ---
Subjective Progress Note Date: 07/18/20 Principal diagnosis: Generalized weakness, lactic acidosis, possible sepsis This is a 79-year-old male patient was transferred to us from [facility] because of concern of infection and sepsis. The patient presented there were originally yesterday complaining of not feeling well for the past month. He was complaining of weakness and having generalized weakness. He denies having any chest back or neck pain. Apparently he was weak and he was unable to eat anything. His last oral intake was approximately a week ago. He did have however alcohol and there was drinking bourbon whiskey on a daily basis. He was afebrile in the emergency department with temperature of 98 6. His pulse was 68. BP was 100/66. Saturation was 99-100% on 3 L of oxygen by nasal cannula. He was given a chest x-ray that was interpreted as a limited left lower lobe pneumonia and the patient was given a combination of Zosyn and Zithromax. Urinalysis was negative for infection. His initial lactic acid level was at 5.6. His magnesium was low at 1.4, his potassium was low at 2.7 and the patient's creatinine was at 1.3 and the liver function tests were consistent with AST of 134 ALT of 33 alk phos of 188, bilirubin of 1.5 and a total protein of 7.5. The patient was brought into our hospital the patient was given a total of 1.5 L and the patient got another 1 L of normal saline at [facility]. His lactic acid level is gradually improving is currently down to 3.4. He is awake and alert. He is following commands. His white cell count remains low at 5.0. He has chronic thrombocytopenia probably related to alcohol drinking. 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 He has an antibiotic spacer and he was given also a PICC line for long-term antibiotic use. [facility] and were not sure of the details of this. Surgeries that he had at a hospital in [facility] . According to him, he was taken a penicillin-based antibiotics and he completed antibiotic treatment back in May 2020. His right hip surgical wound site is dry clean and intact at this point in time. He is able to bear some weight, yet he has still difficulty with mobility and gait. 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 He used to work in [employer], [employer] and he had issues initially with rotator cuff and he was unable to continue his practice as a general surgeon. 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 I believe his license and his assets have been all frozen and taken away from him and the patient is currently living alone and the [facility]. His story needs to be confirmed independently On 07/15/2020 patient seen in follow-up on selective care unit, apparently patient earlier had the episodes of agitation, and she was given a few doses of Ativan per [facility] protocol, he is lethargic on today's exam, confused. Does not appear to be in any acute distress, a pulse ox of 97%, hemodynamically stable, breathing is nonlabored, he is afebrile. Had loose stool today, his C. diff was negative, his electrolytes are within normal limits, BUN is 3 and creatinine is 1.05. Lung sounds are clear, no rhonchi or wheezing, no cough or congestion, the source of his sepsis is still not clear, orthopedic consultation was noted, and his right hip was not thought to be the source of his infection. CT of the abdomen and pelvis showed multifocal areas of uncomplicated acute colitis, marked fatty infiltration of the liver. On 07/18/2020 patient seen in follow-up on selective care unit, he is resting quietly in bed, in no acute distress, a little drowsy, but answering questions appropriately, denies any respiratory difficulty, room air pulse ox 96%, lung sounds are clear to auscultation. No tremors, he does have a headache today, no diaphoresis. No acute events overnight. Remains on CIWA protocol. Remains on Zosyn for empiric antibiotic coverage, although the exact source of sepsis has not been identified, today's labs have been reviewed, with blood cell count of 5.9, hemoglobin is 12.1, sodium is 136, potassium is 2.7 which was replaced per protocol, BUN is for creatinine 0.9. No nausea or vomiting. Blood cultures have been negative, patient was having some loose stools, C. diff was negative Objective - Vital Signs Vital signs: Vital Signs Temp 96.8 F L 10/12/20 08:00 Pulse 57 L 07/18/20 12:00 Resp 16 07/18/20 12:00 BP 109/73 07/18/20 12:00 Pulse Ox 95 07/18/20 12:00 Intake & Output 07/17/20 07/18/20 07/18/20 18:59 06:59 18:59 Intake Total 280 120 Output Total 1025 650 200 Balance -745 -650 -80 Weight 95 kg Intake: Intake, IV Titration 100 Amount Piperacillin-Tazobactam 3 100 .375 gm In Sodium Chloride 0.9% 100 ml @ 25 mls/hr IVPB Q8H [facility] Rx#: [id number] Oral 180 120 Output: Urine 1025 650 200 Stool 0 0 Other: Voiding Method Urinal Urinal # Voids 2 1 - Exam GENERAL EXAM: Drowsy, confused, 59-year-old white male unremarkable with a pulse ox 97% comfortable in no apparent distress. HEAD: Normocephalic/atraumatic. EYES: Normal reaction of pupils, equal size. Conjunctiva pink, sclera white. NOSE: Clear with pink turbinates. THROAT: No erythema or exudates. NECK: No masses, no JVD, no thyroid enlargement, no adenopathy. CHEST: No chest wall deformity. Symmetrical expansion. LUNGS: Equal air entry with no crackles, wheeze, rhonchi or dullness. CVS: Regular rate and rhythm, normal S1 and S2, no gallops, no murmurs, no rubs ABDOMEN: Soft, nontender. No hepatosplenomegaly, normal bowel sounds, no guarding or rigidity. EXTREMITIES: No clubbing, no edema, no cyanosis, 2+ pulses and upper and lower extremities. MUSCULOSKELETAL: Muscle strength and tone normal. SPINE: No scoliosis or deformity SKIN: No rashes CENTRAL NERVOUS SYSTEM: Drowsy and confused. No focal deficits, tone is normal in all 4 extremities. - Labs CBC & Chem 7: 07/18/20 06:49 07/18/20 06:49 Labs: Abnormal Lab Results - Last 24 Hours (Table) 07/17/20 07/17/20 07/17/20 Range/Units 16:38 17:02 23:56 RBC (4.30-5.90) m/uL Hgb (13.0-17.5) gm/dL Hct (39.0-53.0) % MCV (80.0-100.0) fL RDW (11.5-15.5) % Plt Count (150-450) k/uL Lymphocytes # (1.0-4.8) k/uL Sodium (137-145) mmol/L Potassium 3.0 L (3.5-5.1) mmol/L BUN (9-20) mg/dL POC Glucose (mg/dL) 101 H 104 H (75-99) mg/dL Calcium (8.4-10.2) mg/dL Magnesium (1.6-2.3) mg/dL 07/18/20 07/18/20 07/18/20 Range/Units 06:49 06:49 11:40 RBC 3.51 L (4.30-5.90) m/uL Hgb 12.1 L (13.0-17.5) gm/dL Hct 36.5 L (39.0-53.0) % MCV 104.1 H (80.0-100.0) fL RDW 18.8 H (11.5-15.5) % Plt Count 95 L (150-450) k/uL Lymphocytes # 0.9 L (1.0-4.8) k/uL Sodium 136 L (137-145) mmol/L Potassium 2.7 L* (3.5-5.1) mmol/L BUN 4 L (9-20) mg/dL POC Glucose (mg/dL) 120 H (75-99) mg/dL Calcium 7.2 L (8.4-10.2) mg/dL Magnesium 1.1 L (1.6-2.3) mg/dL Microbiology - Last 24 Hours (Table) 07/15/20 16:05 Blood Culture - Preliminary Blood No Growth after 48 hours Assessment and Plan Plan: Assessment: 1 generalized weakness along with lactic acidosis, admitted to the hospital for possible sepsis. No clear source of infection. This could be all related to diminished oral intake and ongoing alcohol drinking. CT chest showed multifocal areas of uncomplicated acute colitis. The patient seems to be drinking heavily 2 acute lactic acidosis, improving 3 history of a infected right hip prosthesis post right hip arthroplasty that was performed for an AVN of the right hip. The patient had the hardware removed and the patient was given antibiotic spacer and long-term antibiotics with a PICC line if he completed a few months back. Orthopedic consultation was noted, and the right hip was not considered to be the source of infection 4 significant mobility and gait secondary to above 5 history of testicular cancer with previous leg orchiectomy 6 history of thyroid cancer post-thyroidectomy currently on thyroid hormone replacement 7 hypertension 8 hyperlipidemia 9 BPH 10 impaired performance and functional status secondary to above-mentioned comorbidities. 11 Delirium, possibly related to metabolic encephalopathy, and alcohol withdrawal Plan: Continue antibiotic as per ID service recommendations, vital signs have been stable, there have been no fever or chills, no worsening dyspnea, no significant cough or congestion. Maintain aspiration precautions. Consult mental health social worker for possibility of subacute rehabilitation placement after discharge. I performed a history & physical examination of the patient and discussed their management with my nurse practitioner, Devora Kamara. I reviewed the nurse practitioner's note and agree with the documented findings and plan of care. Lung sounds are positive for diminished breath sounds. The findings and the impression was discussed with the patient. I attest to the documentation by the nurse practitioner. Time with Patient: Less than 30
[2020-07-18] MEDS: ACETAMINOPHEN TAB 500 MG TAB PO PRN (16:34)
[2020-07-18 17:05] LABS: Glucose,Whole Blood 118 mg/dL (75-99)
[2020-07-18] MEDS: DEXTROSE 5%-0.9% NACL 1,000 ML IV SCH (20:13)
[2020-07-18] MEDS: diazePAM 2 MG TAB PO SCH (20:25)
[2020-07-18 20:40] LABS: Glucose,Whole Blood 132 mg/dL (75-99)
[2020-07-18 21:10] LABS: Magnesium 1.9 mg/dL (1.6-2.3); Potassium 2.9 mmol/L (3.5-5.1)
--- NOTE | 2020-07-19 00:47 | PN ---
PROGRESS NOTE DATE OF SERVICE: 07/18/2020 REASON FOR FOLLOWUP: 1. Pneumonia. 2. Positive blood culture likely contamination. INTERVAL HISTORY: The patient is currently afebrile. The patient is more awake, alert. He is breathing comfortably. Denies having any chest pain. Occasional cough. No abdominal pain or diarrhea. PHYSICAL EXAMINATION: Blood pressure 109/73 with a pulse of 57, temperature 98. He is 95% on room air. General description is a middle-aged male lying in bed in no distress. RESPIRATORY SYSTEM: Unlabored breathing, clear to auscultation anteriorly. HEART: S1, S2. Regular rate and rhythm. ABDOMEN: Soft, no tenderness. LABS: Hemoglobin is 12.1, white count 5.9, BUN of 4, creatinine 0.99. Blood culture had been negative. DIAGNOSTIC IMPRESSION AND PLAN: 1. Patient with pneumonia concern for possible aspiration covered with Zosyn to continue. Finish therapy with oral antibiotic. 2. Positive blood culture with micrococcus species likely contaminant. Blood culture repeat has been negative, off vancomycin. MMODL / IJN: [id number] /
[2020-07-19 01:04] LABS: Glucose,Whole Blood 108 mg/dL (75-99)
[2020-07-19] MEDS: SODIUM CHLORIDE 0.9% 1,000 ML IV SCH (02:49)
[2020-07-19] MEDS: DEXTROSE 5%-0.9% NACL 1,000 ML IV SCH (03:20)
[2020-07-19] MEDS: PIPERACILLIN-TAZOBACTAM 3.375 GM in SODIUM CHLORIDE 0.9% 100 ML IVPB SCH ×3 (03:20→21:27)
[2020-07-19 05:36] LABS: Anisocytosis Slight; Basophils % (A) 1 %; Eosinophils # (A) 0.3 k/uL (0-0.7); Eosinophils % (A) 5 %; HGB 11.9 gm/dL (13.0-17.5); Lymphocytes % (A) 19 %; MCH 34.9 pg (25.0-35.0); MCHC 32.1 g/dL (31.0-37.0); MCV 108.7 fL (80.0-100.0); Macrocytosis Marked; Mean Platelet Volume 7.7; Monocytes # (A) 0.5 k/uL (0-1.0); Monocytes % (A) 9 %; Neutrophils # (A) 3.5 k/uL (1.3-7.7); Neutrophils % (A) 65 %; Platelet Count 140 k/uL (150-450); RDW 19.3 % (11.5-15.5); WBC 5.3 k/uL (3.8-10.6)
[2020-07-19 05:54] LABS: African American GFR (CKD) >90 (>60 ml/min/1.73 sqM); Anion Gap 5 mmol/L; Blood Urea Nitrogen 5 mg/dL (9-20); Calcium 7.7 mg/dL (8.4-10.2); Carbon Dioxide 25 mmol/L (22-30); Chloride 106 mmol/L (98-107); Glucose 89 mg/dL (74-99); Magnesium 1.7 mg/dL (1.6-2.3); Non-African American GFR(CKD) 80 (>60 ml/min/1.73 sqM); Potassium 3.1 mmol/L (3.5-5.1); Sodium 136 mmol/L (137-145)
[2020-07-19] MEDS: POTASSIUM CHLORIDE ER 20 MEQ TAB.ER PO SCH ×5 (06:03→12:26)
[2020-07-19 06:29] LABS: Glucose,Whole Blood 119 mg/dL (75-99)
[2020-07-19] MEDS: THIAMINE 100 MG TAB PO SCH ×2 (07:00→16:21)
[2020-07-19] MEDS ORDERED: Potassium Replacement Protocol 1 EACH MISC MISCELLANE PRN ×2 (07:47→12:17)
[2020-07-19] MEDS: MULTIVITAMINS, THERA 1 EACH TAB PO SCH (08:16)
[2020-07-19] MEDS: NICOTINE 14MG/24HR PATCH TRANSDERM SCH (08:16)
[2020-07-19] MEDS: PROPRANOLOL LA 80 MG CAP.SA.24H PO SCH (08:16)
[2020-07-19] MEDS: TAMSULOSIN 0.4 MG CAP.ER.24H PO SCH (08:16)
[2020-07-19] MEDS: SERTRALINE 100 MG TAB PO SCH (08:16)
[2020-07-19] MEDS: HEPARIN SODIUM,PORCINE 5,000 UNIT/ML 1 ML VIAL SQ SCH ×2 (08:16→21:27)
[2020-07-19] MEDS: LEVOTHYROXINE IVP 100 MCG/5 ML VIAL IV SCH (08:16)
[2020-07-19] MEDS: ACETAMINOPHEN TAB 500 MG TAB PO PRN (11:39)
[2020-07-19 12:08] LABS: Glucose,Whole Blood 105 mg/dL (75-99)
[2020-07-19 12:10] LABS: Calcium 8.1 mg/dL (8.4-10.2); Magnesium 1.7 mg/dL (1.6-2.3); Potassium 3.4 mmol/L (3.5-5.1)
[2020-07-19] MEDS ORDERED: Magnesium Replacement Protocol 1 EACH MISC MISCELLANE PRN (12:17)
[2020-07-19] MEDS: MAGNESIUM SULFATE-D5W PMX 1 GM in DEXTROSE/WATER 1 100ML.BAG IVPB SCH ×2 (16:19→17:32)
[2020-07-19 17:14] LABS: Glucose,Whole Blood 97 mg/dL (75-99)
--- NOTE | 2020-07-19 20:34 | P.PN ---
Subjective History of presenting complaint:From records This is a 59-year-old patient of . Patient drinks at least a couple [place] drinks every day. Smoker. Has not been taking his medications for last 3 weeks peeling weak and tired. Has got short of breath. Cough. Some sputum production. Presented to [facility] provided he was transferred down here. With the diagnosis of pneumonia. Started on IV Zosyn and Zithromax. Patient been having loose stools somewhat watery for last couple of days. No abdominal pain. Somewhat shaky and jittery. Decreased appetite. Patient doesn't eat healthy at home. Patient also had high lactic acid. Has chronically depleted platelets from chronic alcohol intake. Chronic stable medical conditions include GERD, hypertension, testicular cancer back in 1979 with a right orchiectomy and radiation treatment, tired cancer treated with thyroidectomy in 2009, BPH, hypertension, hyperlipidemia, avascular necrosis of the right hip joint status post infection and hardware was removed patient re ceived antibiotic for the same. Tired rundown. Not sure about fever and chills. Admitted with-pneumonia, COPD exacerbation, alcohol withdrawal syndrome, lactic acidosis. Patient was not taking his medications at home for to 3 weeks. Patient was started on IV Zosyn, bronchodilators, steroids. Valium for alcohol withdrawal. CIWA scale.. subjective 07/16/20 this is a pleasant 59 years old male with multiple medical problems as below presents with acute colitis as he has CT of the abdomen showed mild multifocal areas of acute colitis, also with alcohol abuse and withdrawal. Patient was non adherent to treatment for 3 weeks. And she has positive blood culture from outside hospital for gram-positive cocci. today patient was limited drowsy complaining of from nausea and abdominal pain about 2/10, patient is still having diarrhea about 4 times of loose stool per day however staff report no diarrhea, mild complaining of coughing and still feels generally weak. Would lower her diazepam from 2 down to 1 mg 3 times a day, continue with Ativan as needed as part of her CIWA protocol.his CIWA score is 19-14 Continue with Zosyn and IV vancomycin and infectious disease on the case as well 07/17/2020 patient is not eating is male well, today he H 25% of his breakfast. We will do a swallow evaluation His breathing quietly, no chest pain or dyspnea No abdominal pain. Patient is constipated but he is not eating well so I will not give much of laxative. As the patient why he was not taking his medication for 3 weeks, he said it was for 1-2 weeks he was showering, not taking medication sleeping a lot because of his daily drinking of alcohol, patient states that he drinks 2 glasses of bourbon each day but is willing to quit upon discharge Patient remains on Zosyn and IV vancomycin, we will lower his volume to 1 mg to once at bedtime 07/18/2020 Patient is more awake and sitting up in bed today, he denies respiratory symptoms or abdominal pain He ate a little better today as 50% of his meal in the breakfast. Swallow evaluation is still pending Patient also ulcers all questions appropriately, he admits he was not eating well for one week prior to, to the hospital because of nausea and dyspnea and generalized medical weakness and condition but today he states no nausea or vo miting and he does not think he needs any nausea medication. Patient declines and he swallowed a problem. Patient breathing quietly with no abdominal pain or tenderness or distention. Vitals are stable. CBC is a stable, platelets is slightly better today at 95, potassium is significantly low at 2.7 with magnesium low at 1.1, being replaced. 07/19/2020 pt is doing well, he is fully awake and orient with no resp or GI s/s CIWA score is low and he does not needing any lorazepam, diazepam is tapered to 0.5 mg hs and possible dc in one to two days he is able to eat and passed swallow evaluation , pt confirms he eats lunch and dinner although there is no documentation in chart , confirmed with staff and bed side RN pt is medically stable for discharge pending placement Objective - Vital Signs Vital signs: Vital Signs Temp 98.2 F 07/19/20 04:00 Pulse 55 L 07/19/20 16:00 Resp 16 07/19/20 16:00 BP 123/72 07/19/20 16:00 Pulse Ox 98 07/19/20 16:00 Intake & Output 07/19/20 07/19/20 07/20/20 06:59 18:59 06:59 Intake Total 240 0 Output Total 200 800 Balance 40 -800 Weight 89.7 kg Intake: Oral 240 0 Output: Urine 200 800 Stool 0 Other: Voiding Method Urinal # Voids 2 1 # Bowel Movements 2 1 - Exam -GENERAL: The patient is awake but drowsy, not in any acute distress. Well developed, well nourished. HEENT: Pupils are round and equally reacting to light. EOMI. No scleral icterus. No conjunctival pallor. Normocephalic, atraumatic. No pharyngeal erythema. No thyromegaly. CARDIOVASCULAR: S1 and S2 present. No murmurs, rubs, or gallops. PULMONARY: Chest is clear to auscultation, no wheezing or crackles. ABDOMEN: Soft, nontender, nondistended, normoactive bowel sounds. No palpable organomegaly. MUSCULOSKELETAL: No joint swelling or deformity. EXTREMITIES: No cyanosis, clubbing, or pedal edema. NEUROLOGICAL: Gross neurological examination did not reveal any focal deficits. SKIN: No rashes. no petechiae. - Labs CBC & Chem 7: 07/19/20 05:24 07/19/20 11:35 Labs: Abnormal Lab Results - Last 24 Hours (Table) 07/18/20 07/18/20 07/19/20 Range/Units 20:09 20:38 01:00 RBC (4.30-5.90) m/uL Hgb (13.0-17.5) gm/dL Hct (39.0-53.0) % MCV (80.0-100.0) fL RDW (11.5-15.5) % Plt Count (150-450) k/uL Macrocytosis Sodium (137-145) mmol/L Potassium 2.9 L (3.5-5.1) mmol/L BUN (9-20) mg/dL Glucose (74-99) mg/dL POC Glucose (mg/dL) 132 H 108 H (75-99) mg/dL Calcium (8.4-10.2) mg/dL 07/19/20 07/19/20 07/19/20 Range/Units 05:24 05:24 06:28 RBC 3.40 L (4.30-5.90) m/uL Hgb 11.9 L (13.0-17.5) gm/dL Hct 37.0 L (39.0-53.0) % MCV 108.7 H (80.0-100.0) fL RDW 19.3 H (11.5-15.5) % Plt Count 140 L (150-450) k/uL Macrocytosis Marked A Sodium 136 L (137-145) mmol/L Potassium 3.1 L (3.5-5.1) mmol/L BUN 5 L (9-20) mg/dL Glucose (74-99) mg/dL POC Glucose (mg/dL) 119 H (75-99) mg/dL Calcium 7.7 L (8.4-10.2) mg/dL 07/19/20 07/19/20 Range/Units 11:35 12:06 RBC (4.30-5.90) m/uL Hgb (13.0-17.5) gm/dL Hct (39.0-53.0) % MCV (80.0-100.0) fL RDW (11.5-15.5) % Plt Count (150-450) k/uL Macrocytosis Sodium (137-145) mmol/L Potassium 3.4 L (3.5-5.1) mmol/L BUN 5 L (9-20) mg/dL Glucose 110 H (74-99) mg/dL POC Glucose (mg/dL) 105 H (75-99) mg/dL Calcium 8.1 L (8.4-10.2) mg/dL Microbiology - Last 24 Hours (Table) 07/15/20 16:05 Blood Culture - Preliminary Blood No Growth after 96 hours Assessment and Plan Assessment: -possible acute colitis. Less likely pneumonia -Blood culture reported from the outside hospital gram-positive cocci in clusters, sepsis positive -low calorie intake. -Severe electrolyte abnormality with low potassium and magnesium, been placed -alcohol abuse and alcohol withdrawal -Chronic nicotine dependence patient cigarette smoker - COPD, not acute exacerbation -GERD -Essential hypertension -Hyperlipidemia -BPH -Anxiety not otherwise determined -Lactic acidosis both type I and type II including that from dehydration -Macrocytic anemia and alcoholic combination of possible B12 deficiency and alcohol liver disease -Hypokalemia from diarrhea-improved -Hypoglycemia from decreased oral intake Plan: continue with antibiotics Zosyn per ID team recommendation Follow-up culture results Continue with CIWA protocol, Valium disContinue with IV hydration Follow-up with close closely and follow-up recommendation by other consultants DVT prophylaxis: Subcutaneous heparin GI prophylaxis: Protonix Prognosis is guarded medically stable for discharge
[2020-07-19 21:01] LABS: Glucose,Whole Blood 118 mg/dL (75-99)
[2020-07-19] MEDS: diazePAM 2 MG TAB PO SCH (21:27)
--- NOTE | 2020-07-19 23:36 | PN ---
PROGRESS NOTE DATE OF SERVICE: 07/19/2020 REASON FOR FOLLOWUP: 1. Aspiration pneumonia. 2. Positive blood culture. INTERVAL HISTORY: The patient is currently afebrile. The patient is breathing comfortably. He is more awake and alert, currently on room air. Denies having any chest pain or shortness of breath. Minimal cough. No nausea, no vomiting. No abdominal pain or diarrhea. PHYSICAL EXAMINATION: Blood pressure 116/87, pulse of 54, temperature 98.2. He is 98% on room air. General description is a middle-aged male lying in bed in no distress. RESPIRATORY SYSTEM: Unlabored breathing, decreased breath sounds at the bases. No wheeze. HEART: S1, S2. Regular rate and rhythm. ABDOMEN: Soft, no tenderness. LABS: BUN of 5, creatinine 1.13. Blood culture has been negative. DIAGNOSTIC IMPRESSION AND PLAN: 1. Patient with positive blood culture with micrococcus species likely contamination. Repeat blood cultures have been negative. 2. The patient with aspiration pneumonia for which the patient is currently covered with Zosyn. Finishing therapy with short course of oral Augmentin on discharge. Continue supportive care. MMODL / IJN: [id number] /
[2020-07-20] MEDS: PIPERACILLIN-TAZOBACTAM 3.375 GM in SODIUM CHLORIDE 0.9% 100 ML IVPB SCH ×3 (03:25→22:10)
[2020-07-20 06:11] LABS: Glucose,Whole Blood 83 mg/dL (75-99)
[2020-07-20] MEDS: LEVOTHYROXINE 125 MCG TAB PO SCH (06:44)
[2020-07-20] MEDS: PANTOPRAZOLE 40 MG TABLET PO SCH (06:49)
[2020-07-20] MEDS: THIAMINE 100 MG TAB PO SCH ×2 (06:49→16:48)
[2020-07-20] MEDS: MULTIVITAMINS, THERA 1 EACH TAB PO SCH (08:39)
[2020-07-20] MEDS: PROPRANOLOL LA 80 MG CAP.SA.24H PO SCH (08:39)
[2020-07-20] MEDS: TAMSULOSIN 0.4 MG CAP.ER.24H PO SCH (08:39)
[2020-07-20] MEDS: SERTRALINE 100 MG TAB PO SCH (08:39)
[2020-07-20] MEDS: HEPARIN SODIUM,PORCINE 5,000 UNIT/ML 1 ML VIAL SQ SCH ×2 (08:39→21:11)
[2020-07-20] MEDS: NICOTINE 14MG/24HR PATCH TRANSDERM SCH (08:40)
[2020-07-20] MEDS: ACETAMINOPHEN TAB 500 MG TAB PO PRN (08:53)
--- NOTE | 2020-07-20 11:03 | FL ---
Modified barium swallow. HISTORY: Dysphagia. Modified barium swallow was performed with the department of speech pathology. The patient was prese nted with various consistencies of barium. There is no evidence for aspiration or penetration. Full report is to follow from the department of speech pathology. Impression: Normal study.
[2020-07-20 11:54] LABS: Glucose,Whole Blood 102 mg/dL (75-99)
--- NOTE | 2020-07-20 12:30 | P.PN ---
Subjective History of presenting complaint:From records This is a 59-year-old patient of . Patient drinks at least a couple [place] drinks every day. Smoker. Has not been taking his medications for last 3 weeks peeling weak and tired. Has got short of breath. Cough. Some sputum production. Presented to [facility] provided he was transferred down here. With the diagnosis of pneumonia. Started on IV Zosyn and Zithromax. Patient been having loose stools somewhat watery for last couple of days. No abdominal pain. Somewhat shaky and jittery. Decreased appetite. Patient doesn't eat healthy at home. Patient also had high lactic acid. Has chronically depleted platelets from chronic alcohol intake. Chronic stable medical conditions include GERD, hypertension, testicular cancer back in 1979 with a right orchiectomy and radiation treatment, tired cancer treated with thyroidectomy in 2009, BPH, hypertension, hyperlipidemia, avascular necrosis of the right hip joint status post infection and hardware was removed patient re ceived antibiotic for the same. Tired rundown. Not sure about fever and chills. Admitted with-pneumonia, COPD exacerbation, alcohol withdrawal syndrome, lactic acidosis. Patient was not taking his medications at home for to 3 weeks. Patient was started on IV Zosyn, bronchodilators, steroids. Valium for alcohol withdrawal. CIWA scale.. subjective 07/16/20 this is a pleasant 59 years old male with multiple medical problems as below presents with acute colitis as he has CT of the abdomen showed mild multifocal areas of acute colitis, also with alcohol abuse and withdrawal. Patient was non adherent to treatment for 3 weeks. And she has positive blood culture from outside hospital for gram-positive cocci. today patient was limited drowsy complaining of from nausea and abdominal pain about 2/10, patient is still having diarrhea about 4 times of loose stool per day however staff report no diarrhea, mild complaining of coughing and still feels generally weak. Would lower her diazepam from 2 down to 1 mg 3 times a day, continue with Ativan as needed as part of her CIWA protocol.his CIWA score is 19-14 Continue with Zosyn and IV vancomycin and infectious disease on the case as well 07/17/2020 patient is not eating is male well, today he H 25% of his breakfast. We will do a swallow evaluation His breathing quietly, no chest pain or dyspnea No abdominal pain. Patient is constipated but he is not eating well so I will not give much of laxative. As the patient why he was not taking his medication for 3 weeks, he said it was for 1-2 weeks he was showering, not taking medication sleeping a lot because of his daily drinking of alcohol, patient states that he drinks 2 glasses of bourbon each day but is willing to quit upon discharge Patient remains on Zosyn and IV vancomycin, we will lower his volume to 1 mg to once at bedtime 07/18/2020 Patient is more awake and sitting up in bed today, he denies respiratory symptoms or abdominal pain He ate a little better today as 50% of his meal in the breakfast. Swallow evaluation is still pending Patient also ulcers all questions appropriately, he admits he was not eating well for one week prior to, to the hospital because of nausea and dyspnea and generalized medical weakness and condition but today he states no nausea or vo miting and he does not think he needs any nausea medication. Patient declines and he swallowed a problem. Patient breathing quietly with no abdominal pain or tenderness or distention. Vitals are stable. CBC is a stable, platelets is slightly better today at 95, potassium is significantly low at 2.7 with magnesium low at 1.1, being replaced. 07/19/2020 pt is doing well, he is fully awake and orient with no resp or GI s/s CIWA score is low and he does not needing any lorazepam, diazepam is tapered to 0.5 mg hs and possible dc in one to two days he is able to eat and passed swallow evaluation , pt confirms he eats lunch and dinner although there is no documentation in chart , confirmed with staff and bed side RN 07/20/2020 patient is awake over a little lethargic. No dyspnea or abdominal pain. She passed a swallow evaluation however patient is not eating well and since yesterday there is documented on the eighth 25% of his breakfast from today. also he lost some weight. it could be still part of his alcohol withdrawal or medication. We will stop his diazepam tonight and continue with CIWA W protocol he underwent modified barium swallow which was normal today Continue with Zosyn for aspiration pneumonia with plan to switch to oral Augmentin on discharge as per ID Objective - Vital Signs Vital signs: Vital Signs Temp 99.3 F 07/20/20 08:00 Pulse 60 07/20/20 08:00 Resp 16 07/20/20 11:45 BP 110/75 07/20/20 08:00 Pulse Ox 96 07/20/20 08:00 Intake & Output 07/19/20 07/20/20 07/20/20 18:59 06:59 18:59 Intake Total 0 180 Output Total 800 0 275 Balance -800 0 -95 Weight 88 kg Intake: Oral 0 180 Output: Urine 800 275 Stool 0 0 0 Other: Voiding Method Urinal Urinal Urinal # Voids 1 2 1 # Bowel Movements 1 - Exam -GENERAL: The patient is awake but drowsy, not in any acute distress. Well deve loped, well nourished. HEENT: Pupils are round and equally reacting to light. EOMI. No scleral icterus. No conjunctival pallor. Normocephalic, atraumatic. No pharyngeal erythema. No thyromegaly. CARDIOVASCULAR: S1 and S2 present. No murmurs, rubs, or gallops. PULMONARY: Chest is clear to auscultation, no wheezing or crackles. ABDOMEN: Soft, nontender, nondistended, normoactive bowel sounds. No palpable organomegaly. MUSCULOSKELETAL: No joint swelling or deformity. EXTREMITIES: No cyanosis, clubbing, or pedal edema. NEUROLOGICAL: Gross neurological examination did not reveal any focal deficits. SKIN: No rashes. no petechiae. - Labs CBC & Chem 7: 07/19/20 05:24 07/19/20 11:35 Labs: Abnormal Lab Results - Last 24 Hours (Table) 07/19/20 07/20/20 Range/Units 21:00 11:53 POC Glucose (mg/dL) 118 H 102 H (75-99) mg/dL Microbiology - Last 24 Hours (Table) 07/15/20 16:05 Blood Culture - Preliminary Blood No Growth after 96 hours Assessment and Plan Assessment: -possible acute colitis. Less likely pneumonia -Blood culture reported from the outside hospital gram-positive cocci in clusters, sepsis positive -low calorie intake. -Severe electrolyte abnormality with low potassium and magnesium, been placed -alcohol abuse and alcohol withdrawal -Chronic nicotine dependence patient cigarette smoker - COPD, not acute exacerbation -GERD -Essential hypertension -Hyperlipidemia -BPH -Anxiety not otherwise determined -Lactic acidosis both type I and type II including that from dehydration -Macrocytic anemia and alcoholic combination of possible B12 deficiency and alcohol liver disease -Hypokalemia from diarrhea-improved -Hypoglycemia from decreased oral intake Plan: continue with antibiotics Zosyn per ID team recommendation Follow-up culture results Continue with CIWA protocol, discontinue Valium Encourage oral intake disContinue with IV hydration Follow-up with close closely and follow-up recommendation by other consultants DVT prophylaxis: Subcutaneous heparin GI prophylaxis: Protonix Prognosis is guarded medically stable for discharge
--- NOTE | 2020-07-20 14:05 | PN ---
PROGRESS NOTE DATE OF SERVICE: 07/20/2020 REASON FOR FOLLOWUP: Aspiration pneumonia. INTERVAL HISTORY: The patient is currently afebrile. The patient is breathing comfortably on room air. Patient denies having any chest pain or shortness of breath. Minimal cough. No abdominal pain, no diarrhea. PHYSICAL EXAMINATION: Blood pressure 124/79 with a pulse of 52, temperature 99.3, he is 97% on room air. General description is a middle-aged male, lying in bed in no distress. RESPIRATORY SYSTEM: Unlabored breathing, decreased breath sounds, no wheeze. HEART: S1, S2. Regular rate and rhythm. ABDOMEN: Soft, no tenderness. LABS: No new labs have been obtained today. Blood culture has been negative. DIAGNOSTIC IMPRESSION AND PLAN: Patient admitted to the hospital with concern for pneumonia, question of aspiration. Swallow evaluation was negative. Patient did well on the Zosyn, transition to a short course of oral Augmentin at discharge to finish course of therapy. Continue supportive care. MMODL / IJN: [id number] /
[2020-07-20 14:38] VITALS: BMI 28.6
[2020-07-20 16:26] LABS: Glucose,Whole Blood 83 mg/dL (75-99)
[2020-07-20 20:58] LABS: Glucose,Whole Blood 95 mg/dL (75-99)
[2020-07-20] MEDS: diazePAM 2 MG TAB PO SCH (21:10)
[2020-07-21] MEDS: PIPERACILLIN-TAZOBACTAM 3.375 GM in SODIUM CHLORIDE 0.9% 100 ML IVPB SCH (02:57)
[2020-07-21 04:16] VITALS: RESP 16
[2020-07-21] MEDS: PANTOPRAZOLE 40 MG TABLET PO SCH (05:36)
[2020-07-21] MEDS: LEVOTHYROXINE 125 MCG TAB PO SCH (05:36)
[2020-07-21] MEDS: THIAMINE 100 MG TAB PO SCH ×2 (05:36→12:06)
[2020-07-21 06:08] LABS: Glucose,Whole Blood 104 mg/dL (75-99)
[2020-07-21] MEDS: PROPRANOLOL LA 80 MG CAP.SA.24H PO SCH (08:08)
[2020-07-21] MEDS: HEPARIN SODIUM,PORCINE 5,000 UNIT/ML 1 ML VIAL SQ SCH (08:08)
[2020-07-21] MEDS: TAMSULOSIN 0.4 MG CAP.ER.24H PO SCH (08:09)
[2020-07-21] MEDS: NICOTINE 14MG/24HR PATCH TRANSDERM SCH (08:09)
[2020-07-21] MEDS: MULTIVITAMINS, THERA 1 EACH TAB PO SCH (08:09)
[2020-07-21] MEDS: SERTRALINE 100 MG TAB PO SCH (08:09)
[2020-07-21 08:14] VITALS: TEMP 98.1
[2020-07-21 08:54] LABS: African American GFR (CKD) >90 (>60 ml/min/1.73 sqM); Anion Gap 6 mmol/L; Blood Urea Nitrogen 5 mg/dL (9-20); Calcium 7.8 mg/dL (8.4-10.2); Carbon Dioxide 25 mmol/L (22-30); Chloride 104 mmol/L (98-107); Glucose 76 mg/dL (74-99); Non-African American GFR(CKD) 89 (>60 ml/min/1.73 sqM); Potassium 2.9 mmol/L (3.5-5.1); Sodium 135 mmol/L (137-145)
[2020-07-21 09:04] LABS: Anisocytosis Slight; Basophils # (A) 0.1 k/uL (0-0.2); Basophils % (A) 1 %; Eosinophils # (A) 0.2 k/uL (0-0.7); Eosinophils % (A) 3 %; HCT 34.7 % (39.0-53.0); HGB 11.2 gm/dL (13.0-17.5); Lymphocytes # (A) 1.3 k/uL (1.0-4.8); Lymphocytes % (A) 23 %; MCH 34.9 pg (25.0-35.0); MCHC 32.2 g/dL (31.0-37.0); MCV 108.6 fL (80.0-100.0); Macrocytosis Marked; Monocytes # (A) 0.6 k/uL (0-1.0); Monocytes % (A) 11 %; Neutrophils # (A) 3.2 k/uL (1.3-7.7); Neutrophils % (A) 58 %; Platelet Count 237 k/uL (150-450); RDW 18.5 % (11.5-15.5); WBC 5.4 k/uL (3.8-10.6)
[2020-07-21] MEDS ORDERED: Potassium Replacement Protocol 1 EACH MISC MISCELLANE PRN (09:34)
[2020-07-21] MEDS: POTASSIUM CHLORIDE ER 20 MEQ TAB.ER PO SCH ×2 (12:06→12:07)
[2020-07-21 12:09] VITALS: BP 131/79; PULSE 57
[2020-07-21 12:13] LABS: Glucose,Whole Blood 94 mg/dL (75-99)
[2020-07-21] MEDS ORDERED: POTASSIUM CHLORIDE ER 20 MEQ TAB.ER PO STA ×2 (13:03→15:22)
[2020-07-21] MEDS ORDERED: AMOXIC-POT CLAV 875-125MG 1 EACH TAB PO SCH (13:15)
--- NOTE | 2020-07-21 15:37 | PN ---
PROGRESS NOTE DATE OF SERVICE: 07/21/2020 REASON FOR FOLLOWUP: Pneumonia, possible aspiration. INTERVAL HISTORY: The patient is currently afebrile. The patient is breathing comfortably. Denies having any chest pain or shortness of breath or cough. No abdominal pain or diarrhea. The patient has been insisting on going home. PHYSICAL EXAMINATION: Blood pressure is 131/79 with a pulse of 57, temperature 98.1. He is 97% on room air. General description is a middle-aged male lying in bed in no distress. RESPIRATORY SYSTEM: Unlabored breathing. Clear to auscultation anteriorly. HEART: S1, S2. Regular rate and rhythm. ABDOMEN: Soft. No tenderness. LABS: Hemoglobin is 11.2, white count of 5.4, creatinine 0.94. Blood culture negative. DIAGNOSTIC IMPRESSION AND PLAN: 1. Patient with a positive blood culture with micrococcus species, likely contamination. Blood culture repeat has been negative , no need for further treatment for the same. 2. Pneumonia with a question of possible aspiration. Short course of oral Augmentin on discharge. Questions and concerns were answered. MMODL / IJN: [id number] / MTDD
--- NOTE | 2020-07-23 08:35 | CDI ---
Documentation Clarification Form Date: 07/23/2020 07:21:00 AM From: Juani Hawley Phone: If you have a question about this query, please contact Sheyla Schafer, [employer] Manager at [phone] between 8am and 5pm. Admit Date: 07/13/2020 07:25:00 PM Patient Name: Sheldon Cartagena Visit Number: [id number] Discharge Date: 07/21/2020 05:03:00 PM ATTENTION: The Clinical Documentation Specialists (CDI) and [facility] Coding Staff appreciate your assistance in clarifying documentation. Please respond to the clarification below the line at the bottom and electronically sign. The CDI & [facility] Coding staff will review the response and follow-up if needed. Please note: Queries are made part of the Legal Health Record. If you have any questions, please contact the author of this message via ITS. Dr. Varma E Sheet Conflicting documentation has been found in the medical record: Per ID PN 07/21 "Pneumonia possible aspiration". Short course of Augmentin on discharge. Per your PN 07/20, "possible acute colitis less likely pneumonia. Per H and P suspected gram negative pneumonia. Please clarify, did patient have pneumonia, aspiration pneumonia or was it ruled out. History/Risk Factors: alcoholism, COPD, stopped taking meds, fatty liver, immunocompromised due to alcohol Clinical Indicators: SOB and cough Treatment: IV Zosyn, bronchodilators, inhaled steroids DC'd on Augmentin. In your opinion, what is the most clinically appropriate diagnosis for this patient? Aspiration pneumonia Gram negative pneumonia Pneumonia Pneumonia ruled out Other explanation of clinical findings Unable to determine (no explanation for clinical findings) Pneumonia felt less likely Rather than ruled out MTDD
--- NOTE | 2020-07-23 08:55 | CDI ---
Documentation Clarification Form Date: 07/23/2020 07:38:00 AM From: Juani Hawley Phone: If you have a question about this query, please contact Sheyla Schafer, Interface Engineer at [phone] between 8am and 5pm. Admit Date: 07/13/2020 07:25:00 PM Patient Name: Sheldon Cartagena Visit Number: [id number] Discharge Date: 07/21/2020 05:03:00 PM ATTENTION: The Clinical Documentation Specialists (CDI) and [facility] Coding Staff appreciate your assistance in clarifying documentation. Please respond to the clarification below the line at the bottom and electronically sign. The CDI & [facility] Coding staff will review the response and follow-up if needed. Please note: Queries are made part of the Legal Health Record. If you have any questions, please contact the author of this message via ITS. Dr. Varma E Sheet Conflicting documentation has been found in the medical record: Per your PN 07/20 "sepsis positive". Per ID PN 07/21 "positive BC likely a contaminant." Ortho consult "septic shock". History/Risk Factors: SOB, cough, alcoholism with fatty liver, thrombocytopenia, Positive BC at [facility] prior to being transferred to [facility]. Clinical Indicators: Lactic acidosis Treatment: Zosyn IV, DC'd on Augmentin. In your opinion, what is the most clinically appropriate diagnosis for this patient? Sepsis Severe sepsis with septic shock Sepsis ruled out contaminant Other explanation of clinical findings Unable to determine (no explanation for clinical findings) no sepsis MTDD
--- NOTE | 2020-07-23 23:42 | P.DS ---
Providers Date of admission: 07/13/20 19:25 Expected date of discharge: 07/23/20 Attending physician: Arthur Neves Consults: 07/13/20 19:26 Consult Physician Urgent Consulting Provider: Delia Cash Consult Reason/Comments: Severe sepsis, pneumonia Do you want consulting provider notified?: Yes 07/15/20 15:34 Consult Physician Stat Consulting Provider: Cecily Mcginnis Consult Reason/Comments: positive blood cultures Do you want consulting provider notified?: Yes Primary care physician: Nando Deleon [facility] Course: Chief Complaint: Cough shortness History of presenting complaint: This is a 59-year-old patient of . Patient drinks at least a couple [place] drinks every day. Smoker. Has not been taking his medications for last 3 weeks feeling weak and tired. Has got short of breath. Cough. Some sputum production. Presented to [facility] provided he was transferred down here. With the diagnosis of pneumonia. Started on IV Zosyn and Zithromax. Patient been having loose stools somewhat watery for last couple of days. No abdominal pain. Somewhat shaky and jittery. Decreased appetite. Patient doesn't eat healthy at home. Patient also had high lactic acid. Has chronically depleted platelets from chronic alcohol intake. Chronic stable medical conditions include GERD, hypertension, testicular cancer back in 1979 with a right orchiectomy and radiation treatment, thyroid cancer treated with thyroidectomy in 2009, BPH, hypertension, hyperlipidemia, avascular necrosis of the right hip joint status post infection and hardware was removed patient received antibiotic for the same. Tired rundown. Not sure about fever and chills. Admitted with-aspiration pneumonia, COPD exacerbation, alcohol withdrawal syndrome-DTs, lactic acidosis. Patient was not taking his medications at home for to 3 weeks. Patient was started on IV Zosyn, bronchodilators, steroids. Valium for alcohol withdrawal. CIWA scale.. Responded well. Underwent a modified barium swallow.-Normal swallowing. Today-oral intake improved. Doing well.-Patient be discharged home. Discussed. Per Dr. Singh. Change to oral antibiotic. Discussion and discharge planning more than 35 minutes Consultation: Dr. Palacios from pulmonary Dr. Mcginnis from ID Physical examination: VITAL SIGNS: Afebrile, 57, 16, 131/79, 97% room air GENERAL: Comfortable EYES: Pupils equal. Conjunctiva normal. NECK: JVD not raised; masses not palpable. HEART: First and second heart sounds are normal; no edema. LUNGS: Respiratory rate increased, decreased breath sound . ABDOMEN: Soft, nontender, liver spleen not palpable, no masses palpable. PSYCH: Answering questions INVESTIGATIONS, reviewed in the clinical context: White count 4.4 hemoglobin 11.2 potassium 3.2 creatinine 0.94 Admission testing Potassium 3.1 creatinine 1.09 bun is 4 lactic acid 4.8 AST 122 ALT 29 albumin 3.2 Chest x-ray film personally reviewed by me-possible infiltrate Stool negative for C. diff Assessment: -Pneumonia suspected gram-negative orgasm in an immunosuppressed patient from chronic alcoholism -Acute COPD exacerbation in a current smoker -Chronic nicotine dependence patient cigarette smoker -Alcohol use disorder -Delirium tremens- -GERD -Essential hypertension -Hyperlipidemia -BPH -Anxiety not otherwise determined -Lactic acidosis both type I and type II including that from dehydration -Macrocytic anemia and alcoholic combination of possible B12 deficiency and alcohol liver disease -Hypokalemia from diarrhea-improved -Hypoglycemia from decreased oral intake -Acute diarrhea suspect viral , Giardia antigen negative Disposition: Home Patient Condition at Discharge: Stable Plan - Discharge Summary Discharge Rx Participant: Yes New Discharge Prescriptions: New Amoxic-Pot Clav 875-125Mg [Augmentin 875-125] 1 each PO Q12HR #4 tab Nicotine 14Mg/24Hr Patch [Habitrol] 1 patch TRANSDERM DAILY #14 patch Multivitamins, Thera [Multivitamin (formulary)] 1 each PO DAILY #30 tab Budesonide/Formoterol Fumarate [Symbicort 80-4.5 Mcg Inhaler] 1 puff INHALATION BID #1 inhaler Albuterol Inhaler [Ventolin Hfa Inhaler] 1 puff INHALATION RT-QID PRN #1 puff PRN Reason: Wheezing Thiamine [Vitamin B-1] 100 mg PO BID-W/MEALS #30 tab Continue Levothyroxine Sodium 125 mcg PO DAILY Pantoprazole Sodium [Protonix] 20 mg PO DAILY Sertraline HCl [Zoloft] 100 mg PO DAILY Acetaminophen Tab [Tylenol] 650 mg PO TID PRN PRN Reason: Pain Propranolol LA [Inderal LA] 80 mg PO DAILY Tamsulosin [Flomax] 0.5 mg PO DAILY Changed Sertraline HCl [Zoloft] 100 mg PO HS #0 Discontinued Ibuprofen 800 mg PO Q8H PRN PRN Reason: Pain Discharge Medication List Levothyroxine Sodium 125 mcg PO DAILY 07/13/20 [History] Pantoprazole Sodium [Protonix] 20 mg PO DAILY 07/13/20 [History] Sertraline HCl [Zoloft] 100 mg PO DAILY 07/13/20 [History] Acetaminophen Tab [Tylenol] 650 mg PO TID PRN 07/14/20 [History] Propranolol LA [Inderal LA] 80 mg PO DAILY 07/14/20 [History] Tamsulosin [Flomax] 0.5 mg PO DAILY 07/14/20 [History] Albuterol Inhaler [Ventolin Hfa Inhaler] 1 puff INHALATION RT-QID PRN #1 puff 07/21/20 [Rx] Amoxic-Pot Clav 875-125Mg [Augmentin 875-125] 1 each PO Q12HR #4 tab 07/21/20 [Rx] Budesonide/Formoterol Fumarate [Symbicort 80-4.5 Mcg Inhaler] 1 puff INHALATION BID #1 inhaler 07/21/20 [Rx] Multivitamins, Thera [Multivitamin (formulary)] 1 each PO DAILY #30 tab 07/21/20 [Rx] Nicotine 14Mg/24Hr Patch [Habitrol] 1 patch TRANSDERM DAILY #14 patch 07/21/20 [Rx] Sertraline HCl [Zoloft] 100 mg PO HS #0 07/21/20 [Rx] Thiamine [Vitamin B-1] 100 mg PO BID-W/MEALS #30 tab 07/21/20 [Rx] Follow up Appointment(s)/Referral(s): [facility], [NON-STAFF] - 1-2 Days Nando Deleon MD [Primary Care Provider] - 1-2 days Delia Cash MD [STAFF PHYSICIAN] - 1 Week Patient Instructions/Handouts: Sepsis (GEN), Pneumonia (DC) Activity/Diet/Wound Care/Special Instructions: Please follow up with orthopaedic surgeon when discharged from the hospital. PNEUMONIA 1. Continue coughing and breathing exercises to help clear your lungs of secretions. 2. Sit upright during the day to promote lung expansion. Avoid lying flat. 3. Use incentive spirometer every hour to open your airways. 4. Wash your hands before taking your medications or using your nebulizer. 5. Drink clear liquids as directed, they can help loosen secretions. Avoid milk products, as these can make secretions thicker. 6. Do not smoke, or be around others who smoke. 7. Call your physician if your shortness of breath worsens, if you develop an increased fever greater than 101. bmp - 3 days Discharge Disposition: HOME SELF-CARE
== END 2020-07-21 17:03 | disposition home or self-care (01) | DRG 178 ==
LOC: EC 18:40 → 2SICU 19:25 → 3SCARD 07-14 20:24
PROVIDERS: ADMIT Hospitalist; ATTEND Hospitalist
DX: J15.6 Pneumonia due to other Gram-negative bacteria (principal); E87.2 Acidosis; F10.231 Alcohol dependence with withdrawal delirium; J44.1 Chronic obstructive pulmonary disease with (acute) exacerbation; K52.89 Other specified noninfective gastroenteritis and colitis; D53.9 Nutritional anemia, unspecified; D69.59 Other secondary thrombocytopenia; E16.2 Hypoglycemia, unspecified; E78.5 Hyperlipidemia, unspecified; E86.0 Dehydration; E87.6 Hypokalemia; E89.0 Postprocedural hypothyroidism; F17.210 Nicotine dependence, cigarettes, uncomplicated; F41.9 Anxiety disorder, unspecified; I10 Essential (primary) hypertension; K21.9 Gastro-esophageal reflux disease without esophagitis; K59.00 Constipation, unspecified; K76.0 Fatty (change of) liver, not elsewhere classified; N40.0 Benign prostatic hyperplasia without lower urinary tract symptoms; R56.9 Unspecified convulsions; T84.84XD Pain due to internal orthopedic prosthetic devices, implants and grafts, subsequent encounter; E83.42 Hypomagnesemia; Z92.3 Personal history of irradiation; E53.8 Deficiency of other specified B group vitamins; Z81.8 Family history of other mental and behavioral disorders; Z60.2 Problems related to living alone; R26.9 Unspecified abnormalities of gait and mobility; Z79.890 Hormone replacement therapy; Z79.899 Other long term (current) drug therapy; Z82.49 Family history of ischemic heart disease and other diseases of the circulatory system; Z85.47 Personal history of malignant neoplasm of testis; Z85.850 Personal history of malignant neoplasm of thyroid; Z96.641 Presence of right artificial hip joint; T50.916A Underdosing of multiple unspecified drugs, medicaments and biological substances, initial encounter; Z91.128 Patient's intentional underdosing of medication regimen for other reason; Z88.2 Allergy status to sulfonamides; Z91.040 Latex allergy status; Z90.79 Acquired absence of other genital organ(s)
CPT/HCPCS: 36415; 70450; 71045; 73501; 74176; 74230; 80048; 80053; 80202; 82150; 82607; 82746; 83605; 83690; 83735; 84132; 84145; 84439; 84443; 85025; 85027; 85652; 86140; 87040; 87324; 96361; 96372; 96374; 96375; 99291